=== PATIENT | female | born 1930 | race Caucasian/White ===

== ENCOUNTER 2018-09-07 10:44 | Observation (INO) | payer MEDICARE, BC ==
[2018-09-07] MEDS ORDERED: Sodium Chloride 0.9% 10 ML Syringe FLUSH PRN (10:58)
[2018-09-07] MEDS ORDERED: Sodium Chloride 0.9% 2.5 ML Syringe FLUSH PRN (10:58)
--- NOTE | 2018-09-07 11:08 | EDM.PDOC ---
ED HPI GENERAL MEDICAL PROBLEM - General Chief Complaint: General Stated Complaint: LOW FLUID INTAKE Time Seen by Provider: 09/07/18 11:06 Source of Information: Reports: Patient History Limitations: Reports: No Limitations - History of Present Illness INITIAL COMMENTS - FREE TEXT/NARRATIVE: HISTORY AND PHYSICAL: History of present illness: Patient is an 88-year-old female presents to the ED with complaint of weakness. She states she had vomiting and diarrhea 6 days ago, vomiting has since resolved. She has continued to not have an appetite and hasn't had anything to eat in 3 days. She is drinking plenty of fluids but is having about 2 episodes of nonbloody diarrhea daily. She also reports feeling short of breath but has a history of COPD and states it is not new or worsening. Daughter states she hasn' t been taking her lasix as she has been too weak to get up to use the bathroom to urinate often. She denies cough but daughter states she did have a cough 2 weeks ago. She denies chest pain, fevers, chills, abdominal pain. She is at 88% on RA at arrival, not normally on oxygen at home. Review of systems: As per history of present illness and below otherwise all systems reviewed and negative. Past medical history: As per history of present illness and as reviewed below otherwise noncontributory. Surgical history: As per history of present illness and as reviewed below otherwise noncontributory. Social history: No reported history of drug or alcohol abuse. Family history: As per history of present illness and as reviewed below otherwise noncontributory. Physical exam: General: Patient sitting comfortably in no acute distress and nontoxic appearing HEENT: Atraumatic, normocephalic, pupils reactive, negative for conjunctival pallor or scleral icterus, mucous membranes moist, throat clear, neck supple, nontender, trachea midline. No meningeal signs. Lungs: Clear to auscultation, breath sounds equal bilaterally, chest nontender. Heart: S1S2, regular, negative for clicks, rubs, or overt murmur. Abdomen: Soft, nondistended, nontender. Negative for masses or hepatosplenomegaly. Negative for costovertebral tenderness. No rigidity, rebound , guarding. Pelvis: Stable nontender. Genitourinary: Deferred. Rectal: Deferred. Extremities: Atraumatic, negative for cords or calf pain. Neurovascular unremarkable. 2+ pitting edema bilaterally. Neuro: Awake, alert, oriented. Cranial nerves II through XII unremarkable. Cerebellum unremarkable. Motor and sensory unremarkable throughout. Exam nonfocal. Notes: Diagnostics: CBC, CMP, Troponin, BNP, EKG, CXR Therapeutics: 500mL NS IV Lasix 20mg IV DuoNeb Prescriptions: Impression: Dehydration Plan: Discussed with Dr. Mejia, patient admitted to observation for dehydration Definitive disposition and diagnosis as appropriate pending reevaluation and review of above. - Related Data Allergies Allergy/AdvReac Type Severity Reaction Status Date / Time Digitalis Glycosides Allergy Hives Verified 09/07/18 18:20 Home Meds: Home Meds Diltiazem [Cardizem CD] 240 mg PO DAILY 04/08/14 [History] Metoprolol Tartrate [Lopressor] 100 mg PO BID 04/08/14 [History] Multivits-Min/Iron/FA/Lutein [[employer] Women's Tab] 1 tab PO DAILY 04/08 [History] [place]-3/DHA/Epa/Fish Oil [[place]-3 Fish Oil 1,000 MG Sfgl] 1 tab PO DAILY [History] Potassium Chloride 20 meq PO DAILY 04/08/14 [History] Rivaroxaban [Xarelto] 20 mg PO DAILY 04/08/14 [History] Sertraline [Zoloft] 100 mg PO DAILY 04/08/14 [History] Zolpidem [Ambien] 5 mg PO BEDTIME PRN 04/08/14 [History] Furosemide 80 mg PO DAILY 09/07/18 [History] Losartan [Cozaar] 50 mg PO DAILY 09/07/18 [History] Nitroglycerin 1 tab PO TID PRN MDD 3 09/07/18 [History] ED ROS GENERAL - Review of Systems Review Of Systems: ROS reveals no pertinent complaints other than HPI. ED EXAM, GENERAL - Physical Exam Exam: See Below (see dictation) Course - Vital Signs Last Recorded V/S: Last Vital Signs Temp 98.0 F 09/08/18 08:00 Pulse 77 09/08/18 08:00 Resp 18 09/08/18 08:00 BP 115/58 L 09/08/18 08:00 Pulse Ox 95 09/08/18 08:00 - Orders/Labs/Meds Orders: Active Orders 24 hr Category Date Time Status Admission Status [Patient Status] [ADT] Stat ADT 09/07/18 12:49 Active RT Aerosol Therapy [RC] ASDIRECTED Care 09/07/18 11:19 Active CULTURE URINE [RM] Stat Lab 09/07/18 12:50 Received Sodium Chloride 0.9% [Saline Flush] Med 09/07/18 10:58 Active 10 ml FLUSH ASDIRECTED PRN Sodium Chloride 0.9% [Saline Flush] Med 09/07/18 10:58 Active 2.5 ml FLUSH ASDIRECTED PRN Saline Lock Insert [OM.PC] Stat Oth 09/07/18 10:58 Ordered Medication Orders Acetaminophen (Tylenol) 650 mg PO Q4H PRN PRN Reason: Pain (mild 1-3) Diltiazem HCl (Cardizem Cd) 240 mg PO DAILY [facility] Fish Oil (Fish Oil) 1 gm PO DAILY [facility] Last Admin: 09/08/18 09:01 Dose: 1 gm Ceftriaxone Sodium/Dextrose 1 (gm/ Premix) 50 mls @ 100 mls/hr IV Q24H [facility] Last Admin: 09/07/18 15:38 Dose: 100 mls/hr Metoprolol Tartrate (Lopressor) 100 mg PO BID [facility] Multivitamins/Minerals/Vitamin C (Tab-A-Irene) 1 tab PO DAILY [facility] Last Admin: 09/08/18 09:01 Dose: 1 tab Ondansetron HCl (Zofran) 4 mg IVPUSH Q4H PRN PRN Reason: Nausea Rivaroxaban (Xarelto) 20 mg PO DAILY@1730 [facility] Last Admin: 09/07/18 17:59 Dose: 20 mg Sertraline HCl (Zoloft) 100 mg PO DAILY [facility] Last Admin: 09/08/18 09:01 Dose: 100 mg Sodium Chloride (Saline Flush) 10 ml FLUSH ASDIRECTED PRN PRN Reason: Keep Vein Open Last Admin: 09/07/18 11:41 Dose: 10 ml Sodium Chloride (Saline Flush) 2.5 ml FLUSH ASDIRECTED PRN PRN Reason: Keep Vein Open Last Admin: 09/07/18 11:42 Dose: 2.5 ml Vancomycin HCl (First-Vancomycin 25 Compounding Kit) 125 mg PO QID [facility] Last Admin: 09/08/18 09:22 Dose: 5 ml Labs: Laboratory Tests 09/07/18 09/07/18 09/07/18 Range/Units 11:26 11:26 11:26 WBC 12.39 H (4.0-11.0) K/uL RBC 3.86 L (4.30-5.90) M/uL Hgb 10.3 L (12.0-16.0) g/dL Hct 33.4 L (36.0-46.0) % MCV 86.5 (80.0-98.0) fL MCH 26.7 L (27.0-32.0) pg MCHC 30.8 L (31.0-37.0) g/dL RDW Std Deviation 56.9 (28.0-62.0) fl RDW Coeff of Blaine 18 H (11.0-15.0) % Plt Count 216 (150-400) K/uL MPV 10.00 (7.40-12.00) fL Add Manual Diff YES Neutrophils % (Manual) 90 H (48.0-80.0) % Band Neutrophils % 1 % Lymphocytes % (Manual) 2 L (16.0-40.0) % Monocytes % (Manual) 5 (0.0-15.0) % Eosinophils % (Manual) 1 (0.0-7.0) % Myelocytes % 1 % Nucleated RBC % 0.2 /100WBC Absolute Seg Neuts 11.2 H (1.4-5.7) Band Neutrophils # 0.1 Lymphocytes # (Manual) 0.2 L (0.6-2.4) Monocytes # (Manual) 0.6 (0.0-0.8) Eosinophils # (Manual) 0.1 (0.0-0.7) Absolute Myelocytes 0.1 Nucleated RBCs # 0 K/uL INR 1.24 Sodium 132 L (136-145) mmol/L Potassium 3.8 (3.5-5.1) mmol/L Chloride 100 (98-107) mmol/L Carbon Dioxide 22.4 (21.0-32.0) mmol/L BUN 51 H (7.0-18.0) mg/dL Creatinine 1.3 H (0.6-1.0) mg/dL Est Cr Clr Drug Dosing 24.57 mL/min Estimated GFR (MDRD) 38.8 ml/min Glucose 90 (74-106) mg/dL Calcium 9.2 (8.5-10.1) mg/dL Total Bilirubin 0.6 (0.2-1.0) mg/dL AST 23 (15-37) IU/L ALT 14 (14-63) IU/L Alkaline Phosphatase 87 (46-116) U/L Troponin I < 0.050 (0.000-0.056) ng/mL B-Natriuretic Peptide (<100) PG/ML Total Protein 7.7 (6.4-8.2) g/dL Albumin 2.4 L (3.4-5.0) g/dL Globulin 5.3 H (2.6-4.0) g/dL Albumin/Globulin Ratio 0.5 L (0.9-1.6) Urine Color Urine Appearance Urine pH (5.0-8.0) Ur Specific [place] (1.001-1.035) Urine Protein (NEGATIVE) mg/dL Urine Glucose (UA) (NEGATIVE) mg/dL Urine Ketones (NEGATIVE) mg/dL Urine Occult Blood (NEGATIVE) Urine Nitrite (NEGATIVE) Urine Bilirubin (NEGATIVE) Urine Urobilinogen (<2.0) EU/dL Ur Leukocyte Esterase (NEGATIVE) Urine RBC (0-2/HPF) Urine WBC (0-5/HPF) Ur Epithelial Cells (NONE-FEW) Urine Bacteria (NEGATIVE) Urine Mucus (NONE-MOD) 09/07/18 09/07/18 Range/Units 11:26 12:50 WBC (4.0-11.0) K/uL RBC (4.30-5.90) M/uL Hgb (12.0-16.0) g/dL Hct (36.0-46.0) % MCV (80.0-98.0) fL MCH (27.0-32.0) pg MCHC (31.0-37.0) g/dL RDW Std Deviation (28.0-62.0) fl RDW Coeff of [place] (11.0-15.0) % Plt Count (150-400) K/uL MPV (7.40-12.00) fL Add Manual Diff Neutrophils % (Manual) (48.0-80.0) % Band Neutrophils % % Lymphocytes % (Manual) (16.0-40.0) % Monocytes % (Manual) (0.0-15.0) % Eosinophils % (Manual) (0.0-7.0) % Myelocytes % % Nucleated RBC % /100WBC Absolute Seg Neuts (1.4-5.7) Band Neutrophils # Lymphocytes # (Manual) (0.6-2.4) Monocytes # (Manual) (0.0-0.8) Eosinophils # (Manual) (0.0-0.7) Absolute Myelocytes Nucleated RBCs # K/uL INR Sodium (136-145) mmol/L Potassium (3.5-5.1) mmol/L Chloride (98-107) mmol/L Carbon Dioxide (21.0-32.0) mmol/L BUN (7.0-18.0) mg/dL Creatinine (0.6-1.0) mg/dL Est Cr Clr Drug Dosing mL/min Estimated GFR (MDRD) ml/min Glucose (74-106) mg/dL Calcium (8.5-10.1) mg/dL Total Bilirubin (0.2-1.0) mg/dL AST (15-37) IU/L ALT (14-63) IU/L Alkaline Phosphatase (46-116) U/L Troponin I (0.000-0.056) ng/mL B-Natriuretic Peptide 721 H (<100) PG/ML Total Protein (6.4-8.2) g/dL Albumin (3.4-5.0) g/dL Globulin (2.6-4.0) g/dL Albumin/Globulin Ratio (0.9-1.6) Urine Color YELLOW Urine Appearance SLT CLOUDY Urine pH 5.5 (5.0-8.0) Ur Specific [place] 1.020 (1.001-1.035) Urine Protein NEGATIVE (NEGATIVE) mg/dL Urine Glucose (UA) NEGATIVE (NEGATIVE) mg/dL Urine Ketones NEGATIVE (NEGATIVE) mg/dL Urine Occult Blood NEGATIVE (NEGATIVE) Urine Nitrite NEGATIVE (NEGATIVE) Urine Bilirubin NEGATIVE (NEGATIVE) Urine Urobilinogen 0.2 (<2.0) EU/dL Ur Leukocyte Esterase SMALL H (NEGATIVE) Urine RBC 0-2 (0-2/HPF) Urine WBC 8-10 (0-5/HPF) Ur Epithelial Cells MODERATE (NONE-FEW) Urine Bacteria 1+ H (NEGATIVE) Urine Mucus LIGHT (NONE-MOD) Meds: Medications Generic Name Dose Route Start Last Admin Trade Name Olu PRN Reason Stop Dose Admin Acetaminophen 650 mg 09/07/18 14:07 Tylenol PO Q4H PRN Pain (mild 1-3) Diltiazem HCl 240 mg 09/08/18 11:00 Cardizem Cd PO DAILY [facility] Fish Oil 1 gm 09/08/18 09:00 09/08/18 09:01 Fish Oil PO 1 gm DAILY [facility] Administration Ceftriaxone Sodium/Dextrose 1 50 mls @ 100 mls/hr 09/07/18 15:00 09/07/18 15: 38 gm/ Premix IV 100 mls/hr Q24H [facility] Administration Metoprolol Tartrate 100 mg 09/08/18 11:00 Lopressor PO BID [facility] Multivitamins/Minerals/Vitamin C 1 tab 09/08/18 09:00 09/08/18 09:01 Tab-A-Irene PO 1 tab DAILY [facility] Administration Ondansetron HCl 4 mg 09/07/18 14:07 Zofran IVPUSH Q4H PRN Nausea Rivaroxaban 20 mg 09/07/18 17:30 09/07/18 17:59 Xarelto PO 20 mg DAILY@1730 [facility] Administration Sertraline HCl 100 mg 09/08/18 09:00 09/08/18 09:01 Zoloft PO 100 mg DAILY [facility] Administration Sodium Chloride 10 ml 09/07/18 10:58 09/07/18 11:41 Saline Flush FLUSH 10 ml ASDIRECTED PRN Administration Keep Vein Open Sodium Chloride 2.5 ml 09/07/18 10:58 09/07/18 11:42 Saline Flush FLUSH 2.5 ml ASDIRECTED PRN Administration Keep Vein Open Vancomycin HCl 125 mg 09/08/18 09:00 09/08/18 09:22 First-Vancomycin 25 Compounding Kit PO 5 ml QID [facility] Administration Discontinued Medications Generic Name Dose Route Start Last Admin Trade Name Olu PRN Reason Stop Dose Admin Albuterol/Ipratropium 3 ml 09/07/18 11:18 09/07/18 11:47 Duoneb 3.0-0.5 Mg/3 Ml NEB 09/07/18 11:19 3 ml ONETIME ONE Administration Furosemide 20 mg 09/07/18 11:18 09/07/18 11:42 Lasix IVPUSH 09/07/18 11:19 20 mg NOW ONE Administration Sodium Chloride 500 mls @ 999 mls/hr 09/07/18 11:15 09/07/18 11:39 Normal Saline IV 999 mls/hr STAT [facility] Administration Sodium Chloride 1,000 mls @ 50 mls/hr 09/07/18 12:50 09/07/18 14:06 Normal Saline IV 09/08/18 08:49 50 mls/hr STAT ONE Administration Sodium Chloride 1,000 mls @ 50 mls/hr 09/07/18 14:15 09/07/18 17:55 Normal Saline IV 50 mls/hr ASDIRECTED [facility] Administration Vancomycin HCl 250 mg 09/07/18 20:00 09/08/18 03:41 Vancomycin PO 250 mg Q6H [facility] Administration Departure - Departure Time of Disposition: 11:00 Disposition: Refer to Observation Condition: Good Clinical Impression: Dehydration - Discharge Information - My Orders Last 24 Hours: My Active Orders 09/07/18 10:58 Sodium Chloride 0.9% [Saline Flush] 10 ml FLUSH ASDIRECTED PRN Sodium Chloride 0.9% [Saline Flush] 2.5 ml FLUSH ASDIRECTED PRN Saline Lock Insert [OM.PC] Stat 09/07/18 11:19 RT Aerosol Therapy [RC] ASDIRECTED 09/07/18 12:49 Admission Status [Patient Status] [ADT] Stat 09/07/18 12:50 CULTURE URINE [RM] Stat - Assessment/Plan Last 24 Hours: My Active Orders 09/07/18 10:58 Sodium Chloride 0.9% [Saline Flush] 10 ml FLUSH ASDIRECTED PRN Sodium Chloride 0.9% [Saline Flush] 2.5 ml FLUSH ASDIRECTED PRN Saline Lock Insert [OM.PC] Stat 09/07/18 11:19 RT Aerosol Therapy [RC] ASDIRECTED 09/07/18 12:49 Admission Status [Patient Status] [ADT] Stat 09/07/18 12:50 CULTURE URINE [RM] Stat
[2018-09-07] MEDS ORDERED: Sodium Chloride 0.9% 500 ML IV SCH (11:15)
[2018-09-07] MEDS ORDERED: Furosemide 40 MG/4 ML VIAL IVPUSH ONE (11:18)
[2018-09-07] MEDS ORDERED: Albuterol/Ipratropium 3.0-0.5 MG/3 ML Neb Soln NEB ONE (11:18)
--- NOTE | 2018-09-07 11:59 | CR ---
EXAMINATION: Portable chest radiograph. HISTORY: Shortness of breath. Comparison: 01/11/2018. FINDINGS: The trachea is midline. The heart is prominent in size for technique. The cardiomediastinal silhouette is stable. Chronic interstitial prominence with volume loss within the right lung base. Stable patchy infiltrate also noted bilaterally. Osseous structures appear unremarkable. IMPRESSION: 1. Stable interstitial prominence and patchy infiltrate likely representing a degree of scarring. Increasing pulmonary edema is not excluded. 2. Cardiomegaly.
[2018-09-07 12:07] LABS: CHLORIDE,CL 100 mmol/L (98-107); SODIUM,NA 132 mmol/L (136-145)
[2018-09-07] MEDS ORDERED: Sodium Chloride 0.9% 1,000 ML IV ONE (12:50)
[2018-09-07] MEDS ORDERED: Acetaminophen 325 MG Tab PO PRN (14:07)
[2018-09-07] MEDS ORDERED: Ondansetron 4 MG/2 ML SDV IVPUSH PRN (14:07)
--- NOTE | 2018-09-07 14:10 | PCM.HP ---
<Zoie Brooks M - Last Filed: 09/07/18 16:35> H&P History of Present Illness - General Date of Service: 09/07/18 Admit Problem/Dx: Admission Diagnosis/Problem Admission Diagnosis/Problem Dehydration Source of Information: Patient, Family History Limitations: Reports: No Limitations - History of Present Illness Initial Comments - Free Text/Narative: This 88 year old female with pmh of afib on chronic anticoagulation, pacemaker, pulmonary hypertension, and severe tricuspid regurgitation presented to the ED today due to low blood pressure, diarrhea and poor oral intake. She reports for about 1 week she has not felt well. With intermittent nausea. No vomiting. Very poor appetite and hasn't eaten much since Wednesday. She reports feeling thirsty. She has NOT taken any of her medications for the past two days as she hasn't felt well, she hasn't take Lasix for 4 days due to diarrhea and low intake. She denies fevers or chills. No chest pain. SOB is slightly increased from baseline. She reports diarrhea 3-4 times daily, this is watery in nature. Mild abdominal pain with palpation. NO black or bloody BMs. No focal neurologic deficits. In the ED mild leukocytosis noted at 12,390, Hgb 1.3, Na 132, BUN 51, Cr 1.3 which is near baseline. BNP 721, which is lower than baseline. CXR revealed pulmonary edema and scarring to R base and cardiomegaly. EKG SR. BP 100/50s. HR 80s. SHe was given bolus as well as Lasxi 20 mg IV. UA revealed +1 bacteria, pyuria, and leukocyte esterase. She will be admitted for dehydration, UTI and diarrhea. - Related Data Allergies/Adverse Reactions: Allergies Allergy/AdvReac Type Severity Reaction Status Date / Time Digitalis Glycosides Allergy Hives Verified 09/07/18 11:04 Home Medications: Home Meds Diltiazem [Cardizem CD] 240 mg PO DAILY 04/08/14 [History] Metoprolol Tartrate [Lopressor] 100 mg PO BID 04/08/14 [History] Multivits-Min/Iron/FA/Lutein [[employer] Women's Tab] 1 tab PO DAILY 04/08 [History] [place]-3/DHA/Epa/Fish Oil [[place]-3 Fish Oil 1,000 MG Sfgl] 1 tab PO DAILY [History] Potassium Chloride 20 meq PO DAILY 04/08/14 [History] Rivaroxaban [Xarelto] 20 mg PO DAILY 04/08/14 [History] Sertraline [Zoloft] 100 mg PO DAILY 04/08/14 [History] Zolpidem [Ambien] 5 mg PO BEDTIME PRN 04/08/14 [History] Furosemide 80 mg PO DAILY 09/07/18 [History] Losartan [Cozaar] 50 mg PO DAILY 09/07/18 [History] Nitroglycerin 1 tab PO TID PRN MDD 3 09/07/18 [History] Past Medical History Cardiovascular History: Reports: Afib, CAD, Heart Failure, High Cholesterol, Hypertension, Pacemaker, Pulmonary Hypertension, Other (See Below) Other Cardiovascular History: Severe tricuspid regurgitation Respiratory History: Reports: COPD, SOB Gastrointestinal History: Reports: None. Denies: GERD Genitourinary History: Reports: Chronic Renal Insuffiency STUDIO ASSISTANT History: Reports: Musculoskeletal History: Reports: Back Pain, Chronic Psychiatric History: Reports: Depression Endocrine/Metabolic History: Reports: Obesity/BMI 30+. Denies: Diabetes, Type II, Hypothyroidism Hematologic History: Reports: Anticoagulation Therapy Oncologic (Cancer) History: Reports: Colon - Past Surgical History Cardiovascular Surgical History: Reports: Cardiac Ablation, Pacer GI Surgical History: Reports: Hernia, Abdominal Social & Family History - Tobacco Use Smoking Status *Q: Former Smoker Used Tobacco, but Quit: Yes Month/Year Tobacco Last Used: 18-20 years ago - Alcohol Use Alcohol Use History: No - Recreational Drug Use Recreational Drug Use: No - Living Situation & Occupation Occupation: Retired H&P Review of Systems - Review of Systems: Review Of Systems: See Below General: Reports: Chills, Malaise, Weakness. Denies: Fever HEENT: Reports: No Symptoms. Denies: Headaches, Post Nasal Drip, Sore Throat Pulmonary: Reports: Shortness of Breath. Denies: Cough Cardiovascular: Denies: Chest Pain, Palpitations, Lightheadedness Gastrointestinal: Reports: Abdominal Pain, Diarrhea, Decreased Appetite, Nausea. Denies: Black Stool, Bloody Stool, Distension, Vomiting Genitourinary: Reports: No Symptoms. Denies: Dysuria, Frequency, Burning, Flank Pain Musculoskeletal: Reports: No Symptoms Skin: Reports: No Symptoms Neurological: Reports: No Symptoms Hematologic/Lymphatic: Reports: No Symptoms Immunologic: Reports: No Symptoms Exam - Exam Exam: See Below - Vital Signs Vital Signs: Last Vital Signs Temp 97.8 F 09/07/18 10:59 Pulse 76 09/07/18 14:06 Resp 18 09/07/18 14:06 BP 104/58 L 09/07/18 14:06 Pulse Ox 94 L 09/07/18 14:06 Weight: 95.2 kg - Exam Quality Assessment: Supplemental Oxygen General: Alert, Oriented HEENT: Conjunctiva Clear, Pupils Equal. No: Mucosa Moist & [place] (dry) Neck: Supple, Trachea Midline. 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.) Cardiovascular: Regular Rate, Regular Rhythm GI/Abdominal Exam: Normal Bowel Sounds, Soft, Tender (diffuse) Back Exam: Normal Inspection, Full Range of Motion Extremities: Normal Inspection, Normal Range of Motion, Non-Tender, Pedal Edema (+2 pitting edema BLE) Neuro Extensive - Mental Status: Alert, Oriented x3 Neuro Extensive - Motor, Sensory, Reflexes: CN II-XII Intact Psychiatric: Alert, Normal Affect, Normal Mood - Patient Data Lab Results Last 24 hrs: Laboratory Results - last 24 hr 09/07/18 09/07/18 09/07/18 Range/Units 11:26 11:26 11:26 WBC 12.39 H (4.0-11.0) K/uL RBC 3.86 L (4.30-5.90) M/uL Hgb 10.3 L (12.0-16.0) g/dL Hct 33.4 L (36.0-46.0) % MCV 86.5 (80.0-98.0) fL MCH 26.7 L (27.0-32.0) pg MCHC 30.8 L (31.0-37.0) g/dL RDW Std Deviation 56.9 (28.0-62.0) fl RDW Coeff of [place] 18 H (11.0-15.0) % Plt Count 216 (150-400) K/uL MPV 10.00 (7.40-12.00) fL Add Manual Diff YES Neutrophils % (Manual) 90 H (48.0-80.0) % Band Neutrophils % 1 % Lymphocytes % (Manual) 2 L (16.0-40.0) % Monocytes % (Manual) 5 (0.0-15.0) % Eosinophils % (Manual) 1 (0.0-7.0) % Myelocytes % 1 % Nucleated RBC % 0.2 /100WBC Absolute Seg Neuts 11.2 H (1.4-5.7) Band Neutrophils # 0.1 Lymphocytes # (Manual) 0.2 L (0.6-2.4) Monocytes # (Manual) 0.6 (0.0-0.8) Eosinophils # (Manual) 0.1 (0.0-0.7) Absolute Myelocytes 0.1 Nucleated RBCs # 0 K/uL INR 1.24 Sodium 132 L (136-145) mmol/L Potassium 3.8 (3.5-5.1) mmol/L Chloride 100 (98-107) mmol/L Carbon Dioxide 22.4 (21.0-32.0) mmol/L BUN 51 H (7.0-18.0) mg/dL Creatinine 1.3 H (0.6-1.0) mg/dL Est Cr Clr Drug Dosing 24.57 mL/min Estimated GFR (MDRD) 38.8 ml/min Glucose 90 (74-106) mg/dL Calcium 9.2 (8.5-10.1) mg/dL Total Bilirubin 0.6 (0.2-1.0) mg/dL AST 23 (15-37) IU/L ALT 14 (14-63) IU/L Alkaline Phosphatase 87 (46-116) U/L Troponin I < 0.050 (0.000-0.056) ng/mL B-Natriuretic Peptide (<100) PG/ML Total Protein 7.7 (6.4-8.2) g/dL Albumin 2.4 L (3.4-5.0) g/dL Globulin 5.3 H (2.6-4.0) g/dL Albumin/Globulin Ratio 0.5 L (0.9-1.6) Urine Color Urine Appearance Urine pH (5.0-8.0) Ur Specific [place] (1.001-1.035) Urine Protein (NEGATIVE) mg/dL Urine Glucose (UA) (NEGATIVE) mg/dL Urine Ketones (NEGATIVE) mg/dL Urine Occult Blood (NEGATIVE) Urine Nitrite (NEGATIVE) Urine Bilirubin (NEGATIVE) Urine Urobilinogen (<2.0) EU/dL Ur Leukocyte Esterase (NEGATIVE) Urine RBC (0-2/HPF) Urine WBC (0-5/HPF) Ur Epithelial Cells (NONE-FEW) Urine Bacteria (NEGATIVE) Urine Mucus (NONE-MOD) 09/07/18 09/07/18 Range/Units 11:26 12:50 WBC (4.0-11.0) K/uL RBC (4.30-5.90) M/uL Hgb (12.0-16.0) g/dL Hct (36.0-46.0) % MCV (80.0-98.0) fL MCH (27.0-32.0) pg MCHC (31.0-37.0) g/dL RDW Std Deviation (28.0-62.0) fl RDW Coeff of [place] (11.0-15.0) % Plt Count (150-400) K/uL MPV (7.40-12.00) fL Add Manual Diff Neutrophils % (Manual) (48.0-80.0) % Band Neutrophils % % Lymphocytes % (Manual) (16.0-40.0) % Monocytes % (Manual) (0.0-15.0) % Eosinophils % (Manual) (0.0-7.0) % Myelocytes % % Nucleated RBC % /100WBC Absolute Seg Neuts (1.4-5.7) Band Neutrophils # Lymphocytes # (Manual) (0.6-2.4) Monocytes # (Manual) (0.0-0.8) Eosinophils # (Manual) (0.0-0.7) Absolute Myelocytes Nucleated RBCs # K/uL INR Sodium (136-145) mmol/L Potassium (3.5-5.1) mmol/L Chloride (98-107) mmol/L Carbon Dioxide (21.0-32.0) mmol/L BUN (7.0-18.0) mg/dL Creatinine (0.6-1.0) mg/dL Est Cr Clr Drug Dosing mL/min Estimated GFR (MDRD) ml/min Glucose (74-106) mg/dL Calcium (8.5-10.1) mg/dL Total Bilirubin (0.2-1.0) mg/dL AST (15-37) IU/L ALT (14-63) IU/L Alkaline Phosphatase (46-116) U/L Troponin I (0.000-0.056) ng/mL B-Natriuretic Peptide 721 H (<100) PG/ML Total Protein (6.4-8.2) g/dL Albumin (3.4-5.0) g/dL Globulin (2.6-4.0) g/dL Albumin/Globulin Ratio (0.9-1.6) Urine Color YELLOW Urine Appearance SLT CLOUDY Urine pH 5.5 (5.0-8.0) Ur Specific [place] 1.020 (1.001-1.035) Urine Protein NEGATIVE (NEGATIVE) mg/dL Urine Glucose (UA) NEGATIVE (NEGATIVE) mg/dL Urine Ketones NEGATIVE (NEGATIVE) mg/dL Urine Occult Blood NEGATIVE (NEGATIVE) Urine Nitrite NEGATIVE (NEGATIVE) Urine Bilirubin NEGATIVE (NEGATIVE) Urine Urobilinogen 0.2 (<2.0) EU/dL Ur Leukocyte Esterase SMALL H (NEGATIVE) Urine RBC 0-2 (0-2/HPF) Urine WBC 8-10 (0-5/HPF) Ur Epithelial Cells MODERATE (NONE-FEW) Urine Bacteria 1+ H (NEGATIVE) Urine Mucus LIGHT (NONE-MOD) Result Diagrams: 09/07/18 11:26 09/07/18 11:26 - Problem List (1) Dehydration SNOMED Code(s): 52633028 ICD Code: E86.0 - DEHYDRATION Status: Acute Current Visit: Yes (2) Diarrhea SNOMED Code(s): 99822191 ICD Code: R19.7 - DIARRHEA, UNSPECIFIED Status: Acute Current Visit: Yes (3) UTI (urinary tract infection) SNOMED Code(s): 84729726 ICD Code: N39.0 - URINARY TRACT INFECTION, SITE NOT SPECIFIED Status: Acute Current Visit: Yes (4) HTN (hypertension) SNOMED Code(s): 88361929 ICD Code: I10 - ESSENTIAL (PRIMARY) HYPERTENSION Status: Chronic Current Visit: Yes Qualifiers: Hypertension type: essential hypertension Qualified Code(s): I10 - Essential (primary) hypertension (5) Afib SNOMED Code(s): 42332408 ICD Code: I48.91 - UNSPECIFIED ATRIAL FIBRILLATION Status: Chronic Current Visit: Yes Qualifiers: Atrial fibrillation type: chronic Qualified Code(s): I48.2 - Chronic atrial fibrillation (6) Anticoagulation adequate SNOMED Code(s): 175518463, 551323051 ICD Code: Z79.01 - ALF (CURRENT) USE OF ANTICOAGULANTS Status: Chronic Current Visit: Yes (7) Pacemaker SNOMED Code(s): 803650261 ICD Code: Z95.0 - PRESENCE OF CARDIAC PACEMAKER Status: Chronic Current Visit: Yes (8) Pulmonary hypertension SNOMED Code(s): 39045668 ICD Code: I27.20 - PULMONARY HYPERTENSION, UNSPECIFIED Status: Acute Current Visit: Yes (9) Tricuspid regurgitation SNOMED Code(s): 587816867 ICD Code: I07.1 - RHEUMATIC TRICUSPID INSUFFICIENCY Status: Chronic Current Visit: Yes Problem List Initiated/Reviewed/Updated: Yes Orders Last 24hrs: Active Orders 24 hr Category Date Time Status Admission Status [Patient Status] [ADT] Stat ADT 09/07/18 12:49 Active Antiembolic Devices [RC] PER UNIT ROUTINE Care 09/07/18 14:07 Ordered EKG Documentation Completion [RC] STAT Care 09/07/18 11:02 Active Height and Weight [RC] DAILY Care 09/07/18 14:07 Ordered Intake and Output Strict [RC] ASDIRECTED Care 09/07/18 14:09 Ordered Oxygen Therapy [RC] PRN Care 09/07/18 14:07 Ordered RT Aerosol Therapy [RC] ASDIRECTED Care 09/07/18 11:19 Active Up With Assistance [RC] ASDIRECTED Care 09/07/18 14:07 Ordered VTE/DVT Education [RC] PER UNIT ROUTINE Care 09/07/18 14:07 Ordered Vital Signs [RC] Q4H Care 09/07/18 14:07 Ordered 2 Gram Sodium Diet [DIET] Diet 09/07/18 Lunch Ordered BASIC METABOLIC PANEL,BMP [CHEM] AM Lab 09/08/18 05:11 Ordered CBC WITH AUTO DIFF [HEME] AM Lab 09/08/18 05:11 Ordered CDIFF TOX A+B [OP] Routine Lab 09/07/18 14:08 Ordered CULTURE STOOL + CAMPY+SHIGATOX [RM] Routine Lab 09/07/18 14:08 Ordered CULTURE URINE [RM] Stat Lab 09/07/18 12:50 Received Acetaminophen [Tylenol] Med 09/07/18 14:07 Ordered 650 mg PO Q4H PRN Ondansetron [Zofran] Med 09/07/18 14:07 Ordered 4 mg IVPUSH Q4H PRN Sodium Chloride 0.9% [Normal Saline] 1,000 ml Med 09/07/18 12:50 Active IV STAT Sodium Chloride 0.9% [Normal Saline] 500 ml Med 09/07/18 11:15 Active IV STAT Sodium Chloride 0.9% [Saline Flush] Med 09/07/18 10:58 Active 10 ml FLUSH ASDIRECTED PRN Sodium Chloride 0.9% [Saline Flush] Med 09/07/18 10:58 Active 2.5 ml FLUSH ASDIRECTED PRN Antiembolic Hose [OM.PC] Per Unit Routine Ot 09/07/18 14:07 Ordered Isolation [COMM] Stat Ot 09/07/18 14:09 Ordered Saline Lock Insert [OM.PC] Stat Ot 09/07/18 10:58 Ordered Resuscitation Status Routine Resus Stat 09/07/18 14:07 Ordered Medication Orders Acetaminophen (Tylenol) 650 mg PO Q4H PRN PRN Reason: Pain (mild 1-3) Sodium Chloride (Normal Saline) 500 mls @ 999 mls/hr IV STAT FAYE Last Admin: 09/07/18 11:39 Dose: 999 mls/hr Sodium Chloride (Normal Saline) 1,000 mls @ 50 mls/hr IV STAT ONE Stop: 09/08/18 08:49 Last Admin: 09/07/18 14:06 Dose: 50 mls/hr Ondansetron HCl (Zofran) 4 mg IVPUSH Q4H PRN PRN Reason: Nausea Sodium Chloride (Saline Flush) 10 ml FLUSH ASDIRECTED PRN PRN Reason: Keep Vein Open Last Admin: 09/07/18 11:41 Dose: 10 ml Sodium Chloride (Saline Flush) 2.5 ml FLUSH ASDIRECTED PRN PRN Reason: Keep Vein Open Last Admin: 09/07/18 11:42 Dose: 2.5 ml Assessment/Plan Comment:: This 88 year old female admitted with dehydration, diarrhea and UTI 1. Dehydration: Hypotension noted without taking home BP medications. Will hold antihypertensives. Monitor. NS 50 ml/hr, gentle IVF due to hx CHF and pulmonary hypertension 2. Diarrhea: Stool studies pending. 3. UTI: UC pending. Will treat with Rocephin. 4. HTN: hypotensive, as stated above hold medications 5. Afib: Continue Xarelto. Monitor on telemetry. 6. CHF: Stable. Monitor fluid status closely. Daily weights Strict I/O. Weight at 95 kg, which is near dry weight per Dr Mancia note. VTE prophylaxis: Continue Xarelto <Dakota Salazar - Last Filed: 09/07/18 18:19> H&P History of Present Illness - General Admit Problem/Dx: Admission Diagnosis/Problem Admission Diagnosis/Problem Dehydration I have examined the patient independently of Zoie Brooks CNP. I have discussed the case with her. I have reviewed and agree with the examination and plan as outlined by her. Please see orders. Exam - Vital Signs Vital Signs: Last Vital Signs Temp 36.4 C 09/07/18 14:32 Pulse 77 09/07/18 14:32 Resp 16 09/07/18 14:32 BP 115/56 L 09/07/18 14:32 Pulse Ox 90 L 09/07/18 14:32 - Patient Data Lab Results Last 24 hrs: Laboratory Results - last 24 hr 09/07/18 09/07/18 09/07/18 Range/Units 11:26 11:26 11:26 WBC 12.39 H (4.0-11.0) K/uL RBC 3.86 L (4.30-5.90) M/uL Hgb 10.3 L (12.0-16.0) g/dL Hct 33.4 L (36.0-46.0) % MCV 86.5 (80.0-98.0) fL MCH 26.7 L (27.0-32.0) pg MCHC 30.8 L (31.0-37.0) g/dL RDW Std Deviation 56.9 (28.0-62.0) fl RDW Coeff of [place] 18 H (11.0-15.0) % Plt Count 216 (150-400) K/uL MPV 10.00 (7.40-12.00) fL Add Manual Diff YES Neutrophils % (Manual) 90 H (48.0-80.0) % Band Neutrophils % 1 % Lymphocytes % (Manual) 2 L (16.0-40.0) % Monocytes % (Manual) 5 (0.0-15.0) % Eosinophils % (Manual) 1 (0.0-7.0) % Myelocytes % 1 % Nucleated RBC % 0.2 /100WBC Absolute Seg Neuts 11.2 H (1.4-5.7) Band Neutrophils # 0.1 Lymphocytes # (Manual) 0.2 L (0.6-2.4) Monocytes # (Manual) 0.6 (0.0-0.8) Eosinophils # (Manual) 0.1 (0.0-0.7) Absolute Myelocytes 0.1 Nucleated RBCs # 0 K/uL INR 1.24 Sodium 132 L (136-145) mmol/L Potassium 3.8 (3.5-5.1) mmol/L Chloride 100 (98-107) mmol/L Carbon Dioxide 22.4 (21.0-32.0) mmol/L BUN 51 H (7.0-18.0) mg/dL Creatinine 1.3 H (0.6-1.0) mg/dL Est Cr Clr Drug Dosing 24.57 mL/min Estimated GFR (MDRD) 38.8 ml/min Glucose 90 (74-106) mg/dL Calcium 9.2 (8.5-10.1) mg/dL Total Bilirubin 0.6 (0.2-1.0) mg/dL AST 23 (15-37) IU/L ALT 14 (14-63) IU/L Alkaline Phosphatase 87 (46-116) U/L Troponin I < 0.050 (0.000-0.056) ng/mL B-Natriuretic Peptide (<100) PG/ML Total Protein 7.7 (6.4-8.2) g/dL Albumin 2.4 L (3.4-5.0) g/dL Globulin 5.3 H (2.6-4.0) g/dL Albumin/Globulin Ratio 0.5 L (0.9-1.6) Urine Color Urine Appearance Urine pH (5.0-8.0) Ur Specific [place] (1.001-1.035) Urine Protein (NEGATIVE) mg/dL Urine Glucose (UA) (NEGATIVE) mg/dL Urine Ketones (NEGATIVE) mg/dL Urine Occult Blood (NEGATIVE) Urine Nitrite (NEGATIVE) Urine Bilirubin (NEGATIVE) Urine Urobilinogen (<2.0) EU/dL Ur Leukocyte Esterase (NEGATIVE) Urine RBC (0-2/HPF) Urine WBC (0-5/HPF) Ur Epithelial Cells (NONE-FEW) Urine Bacteria (NEGATIVE) Urine Mucus (NONE-MOD) 09/07/18 09/07/18 Range/Units 11:26 12:50 WBC (4.0-11.0) K/uL RBC (4.30-5.90) M/uL Hgb (12.0-16.0) g/dL Hct (36.0-46.0) % MCV (80.0-98.0) fL MCH (27.0-32.0) pg MCHC (31.0-37.0) g/dL RDW Std Deviation (28.0-62.0) fl RDW Coeff of [place] (11.0-15.0) % Plt Count (150-400) K/uL MPV (7.40-12.00) fL Add Manual Diff Neutrophils % (Manual) (48.0-80.0) % Band Neutrophils % % Lymphocytes % (Manual) (16.0-40.0) % Monocytes % (Manual) (0.0-15.0) % Eosinophils % (Manual) (0.0-7.0) % Myelocytes % % Nucleated RBC % /100WBC Absolute Seg Neuts (1.4-5.7) Band Neutrophils # Lymphocytes # (Manual) (0.6-2.4) Monocytes # (Manual) (0.0-0.8) Eosinophils # (Manual) (0.0-0.7) Absolute Myelocytes Nucleated RBCs # K/uL INR Sodium (136-145) mmol/L Potassium (3.5-5.1) mmol/L Chloride (98-107) mmol/L Carbon Dioxide (21.0-32.0) mmol/L BUN (7.0-18.0) mg/dL Creatinine (0.6-1.0) mg/dL Est Cr Clr Drug Dosing mL/min Estimated GFR (MDRD) ml/min Glucose (74-106) mg/dL Calcium (8.5-10.1) mg/dL Total Bilirubin (0.2-1.0) mg/dL AST (15-37) IU/L ALT (14-63) IU/L Alkaline Phosphatase (46-116) U/L Troponin I (0.000-0.056) ng/mL B-Natriuretic Peptide 721 H (<100) PG/ML Total Protein (6.4-8.2) g/dL Albumin (3.4-5.0) g/dL Globulin (2.6-4.0) g/dL Albumin/Globulin Ratio (0.9-1.6) Urine Color YELLOW Urine Appearance SLT CLOUDY Urine pH 5.5 (5.0-8.0) Ur Specific [place] 1.020 (1.001-1.035) Urine Protein NEGATIVE (NEGATIVE) mg/dL Urine Glucose (UA) NEGATIVE (NEGATIVE) mg/dL Urine Ketones NEGATIVE (NEGATIVE) mg/dL Urine Occult Blood NEGATIVE (NEGATIVE) Urine Nitrite NEGATIVE (NEGATIVE) Urine Bilirubin NEGATIVE (NEGATIVE) Urine Urobilinogen 0.2 (<2.0) EU/dL Ur Leukocyte Esterase SMALL H (NEGATIVE) Urine RBC 0-2 (0-2/HPF) Urine WBC 8-10 (0-5/HPF) Ur Epithelial Cells MODERATE (NONE-FEW) Urine Bacteria 1+ H (NEGATIVE) Urine Mucus LIGHT (NONE-MOD) Result Diagrams: 09/07/18 11:26 09/07/18 11:26 Orders Last 24hrs: Active Orders 24 hr Category Date Time Status Admission Status [Patient Status] [ADT] Stat ADT 09/07/18 12:49 Active Antiembolic Devices [RC] PER UNIT ROUTINE Care 09/07/18 14:07 Active EKG Documentation Completion [RC] STAT Care 09/07/18 11:02 Active Height and Weight [RC] DAILY Care 09/07/18 14:07 Active Intake and Output Strict [RC] ASDIRECTED Care 09/07/18 14:09 Active Oxygen Therapy [RC] PRN Care 09/07/18 14:07 Active RT Aerosol Therapy [RC] ASDIRECTED Care 09/07/18 11:19 Active Telemetry Monitoring [Cardiac Monitoring] [RC] . Care 09/07/18 14:12 Active DIRECTED Up With Assistance [RC] ASDIRECTED Care 09/07/18 14:07 Active VTE/DVT Education [RC] PER UNIT ROUTINE Care 09/07/18 14:07 Active Vital Signs [RC] Q4H Care 09/07/18 14:07 Active 2 Gram Sodium Diet [DIET] Diet 09/07/18 Lunch Active BASIC METABOLIC PANEL,BMP [CHEM] AM Lab 09/08/18 05:11 Ordered CBC WITH AUTO DIFF [HEME] AM Lab 09/08/18 05:11 Ordered CDIFF TOX A+B [OP] Routine Lab 09/07/18 17:10 Received CULTURE STOOL + CAMPY+SHIGATOX [RM] Routine Lab 09/07/18 17:10 Received CULTURE URINE [RM] Stat Lab 09/07/18 12:50 Received Acetaminophen [Tylenol] Med 09/07/18 14:07 Active 650 mg PO Q4H PRN Fish Oil/[place]-3 Fatty Acids [Fish Oil] Med 09/08/18 09:00 Active 1 gm PO DAILY Multivitamins [Tab-A-Irene] Med 09/08/18 09:00 Active 1 tab PO DAILY Ondansetron [Zofran] Med 09/07/18 14:07 Active 4 mg IVPUSH Q4H PRN Rivaroxaban [Xarelto] Med 09/07/18 17:30 Active 20 mg PO DAILY@1730 Sertraline [Zoloft] Med 09/08/18 09:00 Active 100 mg PO DAILY Sodium Chloride 0.9% [Normal Saline] 1,000 ml Med 09/07/18 14:15 Active IV ASDIRECTED Sodium Chloride 0.9% [Saline Flush] Med 09/07/18 10:58 Active 10 ml FLUSH ASDIRECTED PRN Sodium Chloride 0.9% [Saline Flush] Med 09/07/18 10:58 Active 2.5 ml FLUSH ASDIRECTED PRN cefTRIAXone [Rocephin in Dextrose,Iso-Osm 1 GM/50 ML] 1 Med 09/07/18 15:00 Active gm Premix Bag 1 bag IV Q24H Antiembolic Hose [OM.PC] Per Unit Routine Oth 09/07/18 14:07 Ordered Isolation [COMM] Stat Oth 09/07/18 14:09 Ordered Saline Lock Insert [OM.PC] Stat Oth 09/07/18 10:58 Ordered Resuscitation Status Routine Resus Stat 09/07/18 14:07 Ordered Medication Orders Acetaminophen (Tylenol) 650 mg PO Q4H PRN PRN Reason: Pain (mild 1-3) Fish Oil (Fish Oil) 1 gm PO DAILY FAYE Sodium Chloride (Normal Saline) 1,000 mls @ 50 mls/hr IV ASDIRECTED [facility] Last Admin: 09/07/18 17:55 Dose: 50 mls/hr Ceftriaxone Sodium/Dextrose 1 (gm/ Premix) 50 mls @ 100 mls/hr IV Q24H [facility] Last Admin: 09/07/18 15:38 Dose: 100 mls/hr Multivitamins/Minerals/Vitamin C (Tab-A-Irene) 1 tab PO DAILY [facility] Ondansetron HCl (Zofran) 4 mg IVPUSH Q4H PRN PRN Reason: Nausea Rivaroxaban (Xarelto) 20 mg PO DAILY@1730 [facility] Last Admin: 09/07/18 17:59 Dose: 20 mg Sertraline HCl (Zoloft) 100 mg PO DAILY [facility] Sodium Chloride (Saline Flush) 10 ml FLUSH ASDIRECTED PRN PRN Reason: Keep Vein Open Last Admin: 09/07/18 11:41 Dose: 10 ml Sodium Chloride (Saline Flush) 2.5 ml FLUSH ASDIRECTED PRN PRN Reason: Keep Vein Open Last Admin: 09/07/18 11:42 Dose: 2.5 ml
[2018-09-07] MEDS ORDERED: Sodium Chloride 0.9% 1,000 ML IV SCH (14:15)
[2018-09-07] MEDS: cefTRIAXone 1 GM in Premix Bag 1 BAG IV SCH (15:38)
[2018-09-07] MEDS: Rivaroxaban 10 MG Tab PO SCH (17:59)
[2018-09-07] MEDS: Vancomycin 125 MG Cap PO SCH (22:05)
[2018-09-08] MEDS: Vancomycin 125 MG Cap PO SCH (03:41)
[2018-09-08] MEDS: Multivitamin Tab PO SCH (09:01)
[2018-09-08] MEDS: Sertraline 100 MG Tab PO SCH (09:01)
[2018-09-08] MEDS: Fish Oil/Omega-3 Fatty Acids 1 Gm Cap PO SCH (09:01)
--- NOTE | 2018-09-08 09:19 | PCM.PN ---
<Zoie Brooks M - Last Filed: 09/08/18 10:47> - General Info Date of Service: 09/08/18 Admission Dx/Problem (Free Text): Admission Diagnosis/Problem Admission Diagnosis/Problem Dehydration Subjective Update: Sitting up in the chair. Feeling much improved from yesterday. She denies SOB or chest pain. Edema to lower legs has improved. Diarrhea once last night and non since. She ate well for supper and is hungry from breakfast. Functional Status: Reports: Pain Controlled, Tolerating Diet, Ambulating, Urinating - Review of Systems General: Reports: No Symptoms HEENT: Reports: No Symptoms. Denies: Headaches, Sore Throat, Visual Changes Pulmonary: Reports: No Symptoms. Denies: Shortness of Breath Cardiovascular: Reports: No Symptoms. Denies: Chest Pain Gastrointestinal: Reports: No Symptoms. Denies: Abdominal Pain, Nausea, Vomiting Genitourinary: Reports: No Symptoms Musculoskeletal: Reports: No Symptoms Skin: Reports: No Symptoms Neurological: Reports: No Symptoms Psychiatric: Reports: No Symptoms - Patient Data Vitals - Most Recent: Last Vital Signs Temp 98.4 F 09/08/18 03:34 Pulse 75 09/08/18 03:34 Resp 18 09/08/18 03:34 BP 127/60 09/08/18 03:34 Pulse Ox 91 L 09/08/18 03:34 Weight - Most Recent: 95.963 kg I&O - Last 24 Hours: Intake & Output 09/07/18 09/08/18 09/08/18 22:59 06:59 14:59 Intake Total 120 550 Output Total 100 350 Balance 20 200 Lab Results Last 24 Hours: Laboratory Results - last 24 hr 09/07/18 09/07/18 09/07/18 Range/Units 11:26 11:26 11:26 WBC 12.39 H (4.0-11.0) K/uL RBC 3.86 L (4.30-5.90) M/uL Hgb 10.3 L (12.0-16.0) g/dL Hct 33.4 L (36.0-46.0) % MCV 86.5 (80.0-98.0) fL MCH 26.7 L (27.0-32.0) pg MCHC 30.8 L (31.0-37.0) g/dL RDW Std Deviation 56.9 (28.0-62.0) fl RDW Coeff of Blaine 18 H (11.0-15.0) % Plt Count 216 (150-400) K/uL MPV 10.00 (7.40-12.00) fL Add Manual Diff YES Neutrophils % (Manual) 90 H (48.0-80.0) % Band Neutrophils % 1 % Lymphocytes % (Manual) 2 L (16.0-40.0) % Monocytes % (Manual) 5 (0.0-15.0) % Eosinophils % (Manual) 1 (0.0-7.0) % Myelocytes % 1 % Nucleated RBC % 0.2 /100WBC Absolute Seg Neuts 11.2 H (1.4-5.7) Band Neutrophils # 0.1 Lymphocytes # (Manual) 0.2 L (0.6-2.4) Monocytes # (Manual) 0.6 (0.0-0.8) Eosinophils # (Manual) 0.1 (0.0-0.7) Absolute Myelocytes 0.1 Nucleated RBCs # 0 K/uL INR 1.24 Sodium 132 L (136-145) mmol/L Potassium 3.8 (3.5-5.1) mmol/L Chloride 100 (98-107) mmol/L Carbon Dioxide 22.4 (21.0-32.0) mmol/L BUN 51 H (7.0-18.0) mg/dL Creatinine 1.3 H (0.6-1.0) mg/dL Est Cr Clr Drug Dosing 24.57 mL/min Estimated GFR (MDRD) 38.8 ml/min Glucose 90 (74-106) mg/dL Calcium 9.2 (8.5-10.1) mg/dL Total Bilirubin 0.6 (0.2-1.0) mg/dL AST 23 (15-37) IU/L ALT 14 (14-63) IU/L Alkaline Phosphatase 87 (46-116) U/L Troponin I < 0.050 (0.000-0.056) ng/mL B-Natriuretic Peptide (<100) PG/ML Total Protein 7.7 (6.4-8.2) g/dL Albumin 2.4 L (3.4-5.0) g/dL Globulin 5.3 H (2.6-4.0) g/dL Albumin/Globulin Ratio 0.5 L (0.9-1.6) Urine Color Urine Appearance Urine pH (5.0-8.0) Ur Specific Freeman (1.001-1.035) Urine Protein (NEGATIVE) mg/dL Urine Glucose (UA) (NEGATIVE) mg/dL Urine Ketones (NEGATIVE) mg/dL Urine Occult Blood (NEGATIVE) Urine Nitrite (NEGATIVE) Urine Bilirubin (NEGATIVE) Urine Urobilinogen (<2.0) EU/dL Ur Leukocyte Esterase (NEGATIVE) Urine RBC (0-2/HPF) Urine WBC (0-5/HPF) Ur Epithelial Cells (NONE-FEW) Urine Bacteria (NEGATIVE) Urine Mucus (NONE-MOD) 09/07/18 09/07/18 09/08/18 Range/Units 11:26 12:50 04:55 WBC 8.75 (4.0-11.0) K/uL RBC 3.68 L (4.30-5.90) M/uL Hgb 9.8 L (12.0-16.0) g/dL Hct 32.3 L (36.0-46.0) % MCV 87.8 (80.0-98.0) fL MCH 26.6 L (27.0-32.0) pg MCHC 30.3 L (31.0-37.0) g/dL RDW Std Deviation 58.0 (28.0-62.0) fl RDW Coeff of Blaine 18 H (11.0-15.0) % Plt Count 214 (150-400) K/uL MPV 10.40 (7.40-12.00) fL Add Manual Diff YES Neutrophils % (Manual) 63 (48.0-80.0) % Band Neutrophils % 4 % Lymphocytes % (Manual) 26 (16.0-40.0) % Monocytes % (Manual) 7 (0.0-15.0) % Eosinophils % (Manual) (0.0-7.0) % Myelocytes % % Nucleated RBC % 0.0 /100WBC Absolute Seg Neuts 5.5 (1.4-5.7) Band Neutrophils # 0.4 Lymphocytes # (Manual) 2.3 (0.6-2.4) Monocytes # (Manual) 0.6 (0.0-0.8) Eosinophils # (Manual) (0.0-0.7) Absolute Myelocytes Nucleated RBCs # 0 K/uL INR Sodium (136-145) mmol/L Potassium (3.5-5.1) mmol/L Chloride (98-107) mmol/L Carbon Dioxide (21.0-32.0) mmol/L BUN (7.0-18.0) mg/dL Creatinine (0.6-1.0) mg/dL Est Cr Clr Drug Dosing mL/min Estimated GFR (MDRD) ml/min Glucose (74-106) mg/dL Calcium (8.5-10.1) mg/dL Total Bilirubin (0.2-1.0) mg/dL AST (15-37) IU/L ALT (14-63) IU/L Alkaline Phosphatase (46-116) U/L Troponin I (0.000-0.056) ng/mL B-Natriuretic Peptide 721 H (<100) PG/ML Total Protein (6.4-8.2) g/dL Albumin (3.4-5.0) g/dL Globulin (2.6-4.0) g/dL Albumin/Globulin Ratio (0.9-1.6) Urine Color YELLOW Urine Appearance SLT CLOUDY Urine pH 5.5 (5.0-8.0) Ur Specific Freeman 1.020 (1.001-1.035) Urine Protein NEGATIVE (NEGATIVE) mg/dL Urine Glucose (UA) NEGATIVE (NEGATIVE) mg/dL Urine Ketones NEGATIVE (NEGATIVE) mg/dL Urine Occult Blood NEGATIVE (NEGATIVE) Urine Nitrite NEGATIVE (NEGATIVE) Urine Bilirubin NEGATIVE (NEGATIVE) Urine Urobilinogen 0.2 (<2.0) EU/dL Ur Leukocyte Esterase SMALL H (NEGATIVE) Urine RBC 0-2 (0-2/HPF) Urine WBC 8-10 (0-5/HPF) Ur Epithelial Cells MODERATE (NONE-FEW) Urine Bacteria 1+ H (NEGATIVE) Urine Mucus LIGHT (NONE-MOD) 09/08/18 Range/Units 04:55 WBC (4.0-11.0) K/uL RBC (4.30-5.90) M/uL Hgb (12.0-16.0) g/dL Hct (36.0-46.0) % MCV (80.0-98.0) fL MCH (27.0-32.0) pg MCHC (31.0-37.0) g/dL RDW Std Deviation (28.0-62.0) fl RDW Coeff of Blaine (11.0-15.0) % Plt Count (150-400) K/uL MPV (7.40-12.00) fL Add Manual Diff Neutrophils % (Manual) (48.0-80.0) % Band Neutrophils % % Lymphocytes % (Manual) (16.0-40.0) % Monocytes % (Manual) (0.0-15.0) % Eosinophils % (Manual) (0.0-7.0) % Myelocytes % % Nucleated RBC % /100WBC Absolute Seg Neuts (1.4-5.7) Band Neutrophils # Lymphocytes # (Manual) (0.6-2.4) Monocytes # (Manual) (0.0-0.8) Eosinophils # (Manual) (0.0-0.7) Absolute Myelocytes Nucleated RBCs # K/uL INR Sodium 134 L (136-145) mmol/L Potassium 3.7 (3.5-5.1) mmol/L Chloride 102 (98-107) mmol/L Carbon Dioxide 24.9 (21.0-32.0) mmol/L BUN 43 H (7.0-18.0) mg/dL Creatinine 1.2 H (0.6-1.0) mg/dL Est Cr Clr Drug Dosing 26.62 mL/min Estimated GFR (MDRD) 42.6 ml/min Glucose 95 (74-106) mg/dL Calcium 8.3 L (8.5-10.1) mg/dL Total Bilirubin (0.2-1.0) mg/dL AST (15-37) IU/L ALT (14-63) IU/L Alkaline Phosphatase (46-116) U/L Troponin I (0.000-0.056) ng/mL B-Natriuretic Peptide (<100) PG/ML Total Protein (6.4-8.2) g/dL Albumin (3.4-5.0) g/dL Globulin (2.6-4.0) g/dL Albumin/Globulin Ratio (0.9-1.6) Urine Color Urine Appearance Urine pH (5.0-8.0) Ur Specific Freeman (1.001-1.035) Urine Protein (NEGATIVE) mg/dL Urine Glucose (UA) (NEGATIVE) mg/dL Urine Ketones (NEGATIVE) mg/dL Urine Occult Blood (NEGATIVE) Urine Nitrite (NEGATIVE) Urine Bilirubin (NEGATIVE) Urine Urobilinogen (<2.0) EU/dL Ur Leukocyte Esterase (NEGATIVE) Urine RBC (0-2/HPF) Urine WBC (0-5/HPF) Ur Epithelial Cells (NONE-FEW) Urine Bacteria (NEGATIVE) Urine Mucus (NONE-MOD) Ryan Results Last 24 Hours: Microbiology 09/07/18 17:10 Clostridium difficile Toxin A & B - Final Stool / Feces Positive C. Diff Antigen 09/07/18 17:10 Campylobacter Antigen Assay - Final Stool / Feces NEGATIVE CAMPYLOBACTER AG REFERENCE RANGE: NEGATIVE Med Orders - Current: Current Medications Acetaminophen (Tylenol) 650 mg PO Q4H PRN PRN Reason: Pain (mild 1-3) Fish Oil (Fish Oil) 1 gm PO DAILY [facility] Last Admin: 09/08/18 09:01 Dose: 1 gm Ceftriaxone Sodium/Dextrose 1 (gm/ Premix) 50 mls @ 100 mls/hr IV Q24H [facility] Last Admin: 09/07/18 15:38 Dose: 100 mls/hr Multivitamins/Minerals/Vitamin C (Tab-A-Irene) 1 tab PO DAILY [facility] Last Admin: 09/08/18 09:01 Dose: 1 tab Ondansetron HCl (Zofran) 4 mg IVPUSH Q4H PRN PRN Reason: Nausea Rivaroxaban (Xarelto) 20 mg PO DAILY@1730 [facility] Last Admin: 09/07/18 17:59 Dose: 20 mg Sertraline HCl (Zoloft) 100 mg PO DAILY [facility] Last Admin: 09/08/18 09:01 Dose: 100 mg Sodium Chloride (Saline Flush) 10 ml FLUSH ASDIRECTED PRN PRN Reason: Keep Vein Open Last Admin: 09/07/18 11:41 Dose: 10 ml Sodium Chloride (Saline Flush) 2.5 ml FLUSH ASDIRECTED PRN PRN Reason: Keep Vein Open Last Admin: 09/07/18 11:42 Dose: 2.5 ml Vancomycin HCl (First-Vancomycin 25 Compounding Kit) 125 mg PO QID [facility] Discontinued Medications Albuterol/Ipratropium (Duoneb 3.0-0.5 Mg/3 Ml) 3 ml NEB ONETIME ONE Stop: 09/07/18 11:19 Last Admin: 09/07/18 11:47 Dose: 3 ml Furosemide (Lasix) 20 mg IVPUSH NOW ONE Stop: 09/07/18 11:19 Last Admin: 09/07/18 11:42 Dose: 20 mg Sodium Chloride (Normal Saline) 500 mls @ 999 mls/hr IV STAT [facility]AYE Last Admin: 09/07/18 11:39 Dose: 999 mls/hr Sodium Chloride (Normal Saline) 1,000 mls @ 50 mls/hr IV STAT ONE Stop: 09/08/18 08:49 Last Admin: 09/07/18 14:06 Dose: 50 mls/hr Sodium Chloride (Normal Saline) 1,000 mls @ 50 mls/hr IV ASDIRECTED [facility] Last Admin: 09/07/18 17:55 Dose: 50 mls/hr Vancomycin HCl (Vancomycin) 250 mg PO Q6H [facility] Last Admin: 09/08/18 03:41 Dose: 250 mg - Exam Quality Assessment: Supplemental Oxygen, DVT Prophylaxis General: Alert, Oriented, Cooperative, No Acute Distress Lungs: Clear to Auscultation, Normal Respiratory Effort Cardiovascular: Regular Rate, Regular Rhythm GI/Abdominal Exam: Normal Bowel Sounds, Soft, Non-Tender Back Exam: Normal Inspection Extremities: Normal Inspection, Normal Range of Motion, Non-Tender, No Pedal Edema Neurological: No New Focal Deficit Psy/Mental Status: Alert, Normal Affect, Normal Mood - Problem List & Annotations (1) Dehydration SNOMED Code(s): 06331453 Code(s): E86.0 - DEHYDRATION Status: Acute Current Visit: Yes (2) Diarrhea SNOMED Code(s): 65149118 Code(s): R19.7 - DIARRHEA, UNSPECIFIED Status: Acute Current Visit: Yes (3) UTI (urinary tract infection) SNOMED Code(s): 17663360 Code(s): N39.0 - URINARY TRACT INFECTION, SITE NOT SPECIFIED Status: Acute Current Visit: Yes (4) HTN (hypertension) SNOMED Code(s): 20408058 Code(s): I10 - ESSENTIAL (PRIMARY) HYPERTENSION Status: Chronic Current Visit: Yes Qualifiers: Hypertension type: essential hypertension Qualified Code(s): I10 - Essential (primary) hypertension (5) Afib SNOMED Code(s): 92164854 Code(s): I48.91 - UNSPECIFIED ATRIAL FIBRILLATION Status: Chronic Current Visit: Yes Qualifiers: Atrial fibrillation type: chronic Qualified Code(s): I48.2 - Chronic atrial fibrillation (6) Anticoagulation adequate SNOMED Code(s): 345903032, 944130119 Code(s): 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 Status: Chronic Current Visit: Yes (7) Pacemaker SNOMED Code(s): 586957052 Code(s): Z95.0 - PRESENCE OF CARDIAC PACEMAKER Status: Chronic Current Visit: Yes (8) Pulmonary hypertension SNOMED Code(s): 17901253 Code(s): I27.20 - PULMONARY HYPERTENSION, UNSPECIFIED Status: Acute Current Visit: Yes (9) Tricuspid regurgitation SNOMED Code(s): 148348398 Code(s): I07.1 - RHEUMATIC TRICUSPID INSUFFICIENCY Status: Chronic Current Visit: Yes - Problem List Review Problem List Initiated/Reviewed/Updated: Yes - My Orders Last 24 Hours: My Active Orders 09/07/18 14:07 Antiembolic Devices [RC] PER UNIT ROUTINE Height and Weight [RC] DAILY Oxygen Therapy [RC] PRN Up With Assistance [RC] ASDIRECTED VTE/DVT Education [RC] PER UNIT ROUTINE Vital Signs [RC] Q4H Acetaminophen [Tylenol] 650 mg PO Q4H PRN Ondansetron [Zofran] 4 mg IVPUSH Q4H PRN Antiembolic Hose [OM.PC] Per Unit Routine Resuscitation Status Routine 09/07/18 14:09 Intake and Output Strict [RC] Q12H Isolation [COMM] Stat 09/07/18 14:12 Telemetry Monitoring [Cardiac Monitoring] [RC] . DIRECTED 09/07/18 15:00 cefTRIAXone [Rocephin in Dextrose,Iso-Osm 1 GM/50 ML] 1 gm Premix Bag 1 bag IV Q24H 09/07/18 17:10 CULTURE STOOL + CAMPY+SHIGATOX [RM] Routine 09/07/18 17:30 Rivaroxaban [Xarelto] 20 mg PO DAILY@1730 09/07/18 Lunch 2 Gram Sodium Diet [DIET] 09/08/18 09:00 Fish Oil/[place]-3 Fatty Acids [Fish Oil] 1 gm PO DAILY Multivitamins [Tab-A-Irene] 1 tab PO DAILY Sertraline [Zoloft] 100 mg PO DAILY Vancomycin [First-Vancomycin 25 Compounding Kit] 125 mg PO QID - Plan Plan:: This 88 year old female admitted with dehydration, diarrhea and UTI 1. Dehydration: Improved. Will stop IVFs. Monitor. 2. Diarrhea: Cdiff antigen. Vancomycin 125 mg QID PO. 3. UTI: UC pending. Continue Rocephin. 4. HTN: Improved. Will slowly restart antihypertensives. 5. Afib: Continue Xarelto. Monitor on telemetry. 6. CHF: Stable. Monitor fluid status closely. Daily weights Strict I/O. Weight at 95 kg, which is near dry weight per Dr Mancia note. VTE prophylaxis: Continue Xarelto Dispo: 1 day <Dakota Salazar - Last Filed: 09/08/18 10:57> - General Info Admission Dx/Problem (Free Text): I have examined the patient independently of Zoie Brooks CNP. I have discussed the case with her. I have reviewed and agree with the examination and plan as outlined by her. Please see orders. - Patient Data Vitals - Most Recent: Last Vital Signs Temp 36.7 C 09/08/18 08:00 Pulse 77 09/08/18 08:00 Resp 18 09/08/18 08:00 BP 115/58 L 09/08/18 08:00 Pulse Ox 95 09/08/18 08:00 I&O - Last 24 Hours: Intake & Output 09/07/18 09/08/18 09/08/18 22:59 06:59 14:59 Intake Total 120 550 Output Total 100 350 Balance 20 200 Lab Results Last 24 Hours: Laboratory Results - last 24 hr 09/07/18 09/07/18 09/07/18 Range/Units 11:26 11:26 11:26 WBC 12.39 H (4.0-11.0) K/uL RBC 3.86 L (4.30-5.90) M/uL Hgb 10.3 L (12.0-16.0) g/dL Hct 33.4 L (36.0-46.0) % MCV 86.5 (80.0-98.0) fL MCH 26.7 L (27.0-32.0) pg MCHC 30.8 L (31.0-37.0) g/dL RDW Std Deviation 56.9 (28.0-62.0) fl RDW Coeff of Blaine 18 H (11.0-15.0) % Plt Count 216 (150-400) K/uL MPV 10.00 (7.40-12.00) fL Add Manual Diff YES Neutrophils % (Manual) 90 H (48.0-80.0) % Band Neutrophils % 1 % Lymphocytes % (Manual) 2 L (16.0-40.0) % Monocytes % (Manual) 5 (0.0-15.0) % Eosinophils % (Manual) 1 (0.0-7.0) % Myelocytes % 1 % Nucleated RBC % 0.2 /100WBC Absolute Seg Neuts 11.2 H (1.4-5.7) Band Neutrophils # 0.1 Lymphocytes # (Manual) 0.2 L (0.6-2.4) Monocytes # (Manual) 0.6 (0.0-0.8) Eosinophils # (Manual) 0.1 (0.0-0.7) Absolute Myelocytes 0.1 Nucleated RBCs # 0 K/uL INR 1.24 Sodium 132 L (136-145) mmol/L Potassium 3.8 (3.5-5.1) mmol/L Chloride 100 (98-107) mmol/L Carbon Dioxide 22.4 (21.0-32.0) mmol/L BUN 51 H (7.0-18.0) mg/dL Creatinine 1.3 H (0.6-1.0) mg/dL Est Cr Clr Drug Dosing 24.57 mL/min Estimated GFR (MDRD) 38.8 ml/min Glucose 90 (74-106) mg/dL Calcium 9.2 (8.5-10.1) mg/dL Total Bilirubin 0.6 (0.2-1.0) mg/dL AST 23 (15-37) IU/L ALT 14 (14-63) IU/L Alkaline Phosphatase 87 (46-116) U/L Troponin I < 0.050 (0.000-0.056) ng/mL B-Natriuretic Peptide (<100) PG/ML Total Protein 7.7 (6.4-8.2) g/dL Albumin 2.4 L (3.4-5.0) g/dL Globulin 5.3 H (2.6-4.0) g/dL Albumin/Globulin Ratio 0.5 L (0.9-1.6) Urine Color Urine Appearance Urine pH (5.0-8.0) Ur Specific Freeman (1.001-1.035) Urine Protein (NEGATIVE) mg/dL Urine Glucose (UA) (NEGATIVE) mg/dL Urine Ketones (NEGATIVE) mg/dL Urine Occult Blood (NEGATIVE) Urine Nitrite (NEGATIVE) Urine Bilirubin (NEGATIVE) Urine Urobilinogen (<2.0) EU/dL Ur Leukocyte Esterase (NEGATIVE) Urine RBC (0-2/HPF) Urine WBC (0-5/HPF) Ur Epithelial Cells (NONE-FEW) Urine Bacteria (NEGATIVE) Urine Mucus (NONE-MOD) 09/07/18 09/07/18 09/08/18 Range/Units 11:26 12:50 04:55 WBC 8.75 (4.0-11.0) K/uL RBC 3.68 L (4.30-5.90) M/uL Hgb 9.8 L (12.0-16.0) g/dL Hct 32.3 L (36.0-46.0) % MCV 87.8 (80.0-98.0) fL MCH 26.6 L (27.0-32.0) pg MCHC 30.3 L (31.0-37.0) g/dL RDW Std Deviation 58.0 (28.0-62.0) fl RDW Coeff of Blaine 18 H (11.0-15.0) % Plt Count 214 (150-400) K/uL MPV 10.40 (7.40-12.00) fL Add Manual Diff YES Neutrophils % (Manual) 63 (48.0-80.0) % Band Neutrophils % 4 % Lymphocytes % (Manual) 26 (16.0-40.0) % Monocytes % (Manual) 7 (0.0-15.0) % Eosinophils % (Manual) (0.0-7.0) % Myelocytes % % Nucleated RBC % 0.0 /100WBC Absolute Seg Neuts 5.5 (1.4-5.7) Band Neutrophils # 0.4 Lymphocytes # (Manual) 2.3 (0.6-2.4) Monocytes # (Manual) 0.6 (0.0-0.8) Eosinophils # (Manual) (0.0-0.7) Absolute Myelocytes Nucleated RBCs # 0 K/uL INR Sodium (136-145) mmol/L Potassium (3.5-5.1) mmol/L Chloride (98-107) mmol/L Carbon Dioxide (21.0-32.0) mmol/L BUN (7.0-18.0) mg/dL Creatinine (0.6-1.0) mg/dL Est Cr Clr Drug Dosing mL/min Estimated GFR (MDRD) ml/min Glucose (74-106) mg/dL Calcium (8.5-10.1) mg/dL Total Bilirubin (0.2-1.0) mg/dL AST (15-37) IU/L ALT (14-63) IU/L Alkaline Phosphatase (46-116) U/L Troponin I (0.000-0.056) ng/mL B-Natriuretic Peptide 721 H (<100) PG/ML Total Protein (6.4-8.2) g/dL Albumin (3.4-5.0) g/dL Globulin (2.6-4.0) g/dL Albumin/Globulin Ratio (0.9-1.6) Urine Color YELLOW Urine Appearance SLT CLOUDY Urine pH 5.5 (5.0-8.0) Ur Specific Freeman 1.020 (1.001-1.035) Urine Protein NEGATIVE (NEGATIVE) mg/dL Urine Glucose (UA) NEGATIVE (NEGATIVE) mg/dL Urine Ketones NEGATIVE (NEGATIVE) mg/dL Urine Occult Blood NEGATIVE (NEGATIVE) Urine Nitrite NEGATIVE (NEGATIVE) Urine Bilirubin NEGATIVE (NEGATIVE) Urine Urobilinogen 0.2 (<2.0) EU/dL Ur Leukocyte Esterase SMALL H (NEGATIVE) Urine RBC 0-2 (0-2/HPF) Urine WBC 8-10 (0-5/HPF) Ur Epithelial Cells MODERATE (NONE-FEW) Urine Bacteria 1+ H (NEGATIVE) Urine Mucus LIGHT (NONE-MOD) 09/08/ Range/Units 04:55 WBC (4.0-11.0) K/uL RBC (4.30-5.90) M/uL Hgb (12.0-16.0) g/dL Hct (36.0-46.0) % MCV (80.0-98.0) fL MCH (27.0-32.0) pg MCHC (31.0-37.0) g/dL RDW Std Deviation (28.0-62.0) fl RDW Coeff of Blaine (11.0-15.0) % Plt Count (150-400) K/uL MPV (7.40-12.00) fL Add Manual Diff Neutrophils % (Manual) (48.0-80.0) % Band Neutrophils % % Lymphocytes % (Manual) (16.0-40.0) % Monocytes % (Manual) (0.0-15.0) % Eosinophils % (Manual) (0.0-7.0) % Myelocytes % % Nucleated RBC % /100WBC Absolute Seg Neuts (1.4-5.7) Band Neutrophils # Lymphocytes # (Manual) (0.6-2.4) Monocytes # (Manual) (0.0-0.8) Eosinophils # (Manual) (0.0-0.7) Absolute Myelocytes Nucleated RBCs # K/uL INR Sodium 134 L (136-145) mmol/L Potassium 3.7 (3.5-5.1) mmol/L Chloride 102 (98-107) mmol/L Carbon Dioxide 24.9 (21.0-32.0) mmol/L BUN 43 H (7.0-18.0) mg/dL Creatinine 1.2 H (0.6-1.0) mg/dL Est Cr Clr Drug Dosing 26.62 mL/min Estimated GFR (MDRD) 42.6 ml/min Glucose 95 (74-106) mg/dL Calcium 8.3 L (8.5-10.1) mg/dL Total Bilirubin (0.2-1.0) mg/dL AST (15-37) IU/L ALT (14-63) IU/L Alkaline Phosphatase (46-116) U/L Troponin I (0.000-0.056) ng/mL B-Natriuretic Peptide (<100) PG/ML Total Protein (6.4-8.2) g/dL Albumin (3.4-5.0) g/dL Globulin (2.6-4.0) g/dL Albumin/Globulin Ratio (0.9-1.6) Urine Color Urine Appearance Urine pH (5.0-8.0) Ur Specific [place] (1.001-1.035) Urine Protein (NEGATIVE) mg/dL Urine Glucose (UA) (NEGATIVE) mg/dL Urine Ketones (NEGATIVE) mg/dL Urine Occult Blood (NEGATIVE) Urine Nitrite (NEGATIVE) Urine Bilirubin (NEGATIVE) Urine Urobilinogen (<2.0) EU/dL Ur Leukocyte Esterase (NEGATIVE) Urine RBC (0-2/HPF) Urine WBC (0-5/HPF) Ur Epithelial Cells (NONE-FEW) Urine Bacteria (NEGATIVE) Urine Mucus (NONE-MOD) Ryan Results Last 24 Hours: Microbiology 09/07/18 17:10 Clostridium difficile Toxin A & B - Final Stool / Feces Positive C. Diff Antigen 09/07/18 17:10 Campylobacter Antigen Assay - Final Stool / Feces NEGATIVE CAMPYLOBACTER AG REFERENCE RANGE: NEGATIVE Med Orders - Current: Current Medications Acetaminophen (Tylenol) 650 mg PO Q4H PRN PRN Reason: Pain (mild 1-3) Diltiazem HCl (Cardizem Cd) 240 mg PO DAILY [facility] Fish Oil (Fish Oil) 1 gm PO DAILY [facility] Last Admin: 09/08/18 09:01 Dose: 1 gm Ceftriaxone Sodium/Dextrose 1 (gm/ Premix) 50 mls @ 100 mls/hr IV Q24H [facility] Last Admin: 09/07/18 15:38 Dose: 100 mls/hr Metoprolol Tartrate (Lopressor) 100 mg PO BID [facility] Multivitamins/Minerals/Vitamin C (Tab-A-Irene) 1 tab PO DAILY [facility] Last Admin: 09/08/18 09:01 Dose: 1 tab Ondansetron HCl (Zofran) 4 mg IVPUSH Q4H PRN PRN Reason: Nausea Rivaroxaban (Xarelto) 20 mg PO DAILY@1730 [facility] Last Admin: 09/07/18 17:59 Dose: 20 mg Sertraline HCl (Zoloft) 100 mg PO DAILY [facility] Last Admin: 09/08/18 09:01 Dose: 100 mg Sodium Chloride (Saline Flush) 10 ml FLUSH ASDIRECTED PRN PRN Reason: Keep Vein Open Last Admin: 09/07/18 11:41 Dose: 10 ml Sodium Chloride (Saline Flush) 2.5 ml FLUSH ASDIRECTED PRN PRN Reason: Keep Vein Open Last Admin: 09/07/18 11:42 Dose: 2.5 ml Vancomycin HCl (First-Vancomycin 25 Compounding Kit) 125 mg PO QID [facility] Last Admin: 09/08/18 09:22 Dose: 5 ml Discontinued Medications Albuterol/Ipratropium (Duoneb 3.0-0.5 Mg/3 Ml) 3 ml NEB ONETIME ONE Stop: 09/07/18 11:19 Last Admin: 09/07/18 11:47 Dose: 3 ml Furosemide (Lasix) 20 mg IVPUSH NOW ONE Stop: 09/07/18 11:19 Last Admin: 09/07/18 11:42 Dose: 20 mg Sodium Chloride (Normal Saline) 500 mls @ 999 mls/hr IV STAT [facility] Last Admin: 09/07/18 11:39 Dose: 999 mls/hr Sodium Chloride (Normal Saline) 1,000 mls @ 50 mls/hr IV STAT ONE Stop: 09/08/18 08:49 Last Admin: 09/07/18 14:06 Dose: 50 mls/hr Sodium Chloride (Normal Saline) 1,000 mls @ 50 mls/hr IV ASDIRECTED [facility] Last Admin: 09/07/18 17:55 Dose: 50 mls/hr Vancomycin HCl (Vancomycin) 250 mg PO Q6H [facility] Last Admin: 09/08/18 03:41 Dose: 250 mg
[2018-09-08] MEDS: Vancomycin 25 MG/ML Compounding Kit PO SCH ×4 (09:22→23:31)
[2018-09-08] MEDS: Metoprolol Tartrate 50 MG Tab PO SCH ×2 (11:48→21:19)
[2018-09-08] MEDS: Diltiazem 120 MG Cap.CD PO SCH (11:49)
[2018-09-08] MEDS: cefTRIAXone 1 GM in Premix Bag 1 BAG IV SCH (15:12)
[2018-09-08] MEDS: Rivaroxaban 10 MG Tab PO SCH (18:01)
[2018-09-09] MEDS: Vancomycin 25 MG/ML Compounding Kit PO SCH ×4 (06:14→23:15)
[2018-09-09] MEDS: Diltiazem 120 MG Cap.CD PO SCH (09:34)
[2018-09-09] MEDS: Metoprolol Tartrate 50 MG Tab PO SCH ×2 (09:34→21:13)
[2018-09-09] MEDS: Fish Oil/Omega-3 Fatty Acids 1 Gm Cap PO SCH (09:35)
[2018-09-09] MEDS: Multivitamin Tab PO SCH (09:35)
[2018-09-09] MEDS: Sertraline 100 MG Tab PO SCH (09:35)
[2018-09-09] MEDS: Losartan 50 MG Tab PO SCH (09:35)
--- NOTE | 2018-09-09 11:12 | PCM.PN ---
- General Info Date of Service: 09/09/18 Admission Dx/Problem (Free Text): Dehydration Subjective Update: The patient is an 88-year-old lady with a chronic medical history including pulmonary hypertension and tricuspid regurgitation was admitted secondary to hypotension and dehydration. The patient today says that she is still had diarrhea. She been previously diagnosed with C. difficile colitis. She does not feel like she has the ability to go home today. Patient also says that she has gained some weight and her feet are puffy. Functional Status: Reports: Pain Controlled - Review of Systems General: Reports: Weakness HEENT: Reports: No Symptoms Pulmonary: Reports: Shortness of Breath Cardiovascular: Reports: Edema Gastrointestinal: Reports: No Symptoms Genitourinary: Reports: No Symptoms Musculoskeletal: Reports: No Symptoms Skin: Reports: No Symptoms Neurological: Reports: No Symptoms Psychiatric: Reports: No Symptoms - Patient Data Vitals - Most Recent: Last Vital Signs Temp 36.9 C 09/09/18 07:40 Pulse 67 09/09/18 09:34 Resp 20 09/09/18 07:40 BP 139/57 L 09/09/18 09:35 Pulse Ox 94 L 09/09/18 07:40 Weight - Most Recent: 96.479 kg I&O - Last 24 Hours: Intake & Output 09/08/18 09/09/18 09/09/18 22:59 06:59 14:59 Intake Total 750 350 Output Total 700 300 Balance 50 50 Lab Results Last 24 Hours: Laboratory Results - last 24 hr 09/09/18 09/09/18 Range/Units 05:35 05:35 WBC 9.86 (4.0-11.0) K/uL RBC 3.72 L (4.30-5.90) M/uL Hgb 10.1 L (12.0-16.0) g/dL Hct 32.5 L (36.0-46.0) % MCV 87.4 (80.0-98.0) fL MCH 27.2 (27.0-32.0) pg MCHC 31.1 (31.0-37.0) g/dL RDW Std Deviation 57.1 (28.0-62.0) fl RDW Coeff of Blaine 18 H (11.0-15.0) % Plt Count 226 (150-400) K/uL MPV 9.90 (7.40-12.00) fL Neut % (Auto) 71.9 (48.0-80.0) % Lymph % (Auto) 12.5 L (16.0-40.0) % [place] % (Auto) 12.4 (0.0-15.0) % Eos % (Auto) 2.7 (0.0-7.0) % Baso % (Auto) 0.5 (0.0-1.5) % Neut # (Auto) 7.1 H (1.4-5.7) K/uL Lymph # (Auto) 1.2 (0.6-2.4) K/uL [place] # (Auto) 1.2 H (0.0-0.8) K/uL Eos # (Auto) 0.3 (0.0-0.7) K/uL Baso # (Auto) 0.1 (0.0-0.1) K/uL Nucleated RBC % 0.0 /100WBC Nucleated RBCs # 0 K/uL Sodium 136 (136-145) mmol/L Potassium 3.8 (3.5-5.1) mmol/L Chloride 103 (98-107) mmol/L Carbon Dioxide 25.9 (21.0-32.0) mmol/L BUN 33 H (7.0-18.0) mg/dL Creatinine 1.1 H (0.6-1.0) mg/dL Est Cr Clr Drug Dosing 29.04 mL/min Estimated GFR (MDRD) 47.1 ml/min Glucose 87 (74-106) mg/dL Calcium 8.5 (8.5-10.1) mg/dL Ryan Results Last 24 Hours: Microbiology 09/07/18 17:10 Stool Culture - Final Stool / Feces NO SALMONELLA, SHIGELLA,OR E.COLI O157 ISOLATED Campylobacter Antigen Assay - Final NEGATIVE CAMPYLOBACTER AG REFERENCE RANGE: NEGATIVE Shiga Toxin I - Final NEGATIVE FOR SHIGA TOXIN 1 REFERENCE RANGE: NEGATIVE Shiga Toxin II - Final NEGATIVE FOR SHIGA TOXIN 2 REFERENCE RANGE: NEGATIVE 09/07/18 12:50 Urine Culture - Final Urine, Clean Catch MIXED YULIA >100,000 CFU/ML Med Orders - Current: Current Medications Acetaminophen (Tylenol) 650 mg PO Q4H PRN PRN Reason: Pain (mild 1-3) Diltiazem HCl (Cardizem Cd) 240 mg PO DAILY [facility] Last Admin: 09/09/18 09:34 Dose: 240 mg Fish Oil (Fish Oil) 1 gm PO DAILY [facility] Last Admin: 09/09/18 09:35 Dose: 1 gm Ceftriaxone Sodium/Dextrose 1 (gm/ Premix) 50 mls @ 100 mls/hr IV Q24H [facility] Last Admin: 09/08/18 15:12 Dose: 100 mls/hr Losartan Potassium (Cozaar) 50 mg PO DAILY [facility] Last Admin: 09/09/18 09:35 Dose: 50 mg Metoprolol Tartrate (Lopressor) 100 mg PO BID [facility] Last Admin: 09/09/18 09:34 Dose: 100 mg Multivitamins/Minerals/Vitamin C (Tab-A-Irene) 1 tab PO DAILY [facility] Last Admin: 09/09/18 09:35 Dose: 1 tab Ondansetron HCl (Zofran) 4 mg IVPUSH Q4H PRN PRN Reason: Nausea Rivaroxaban (Xarelto) 20 mg PO DAILY@1730 [facility] Last Admin: 09/08/18 18:01 Dose: 20 mg Sertraline HCl (Zoloft) 100 mg PO DAILY [facility] Last Admin: 09/09/18 09:35 Dose: 100 mg Sodium Chloride (Saline Flush) 10 ml FLUSH ASDIRECTED PRN PRN Reason: Keep Vein Open Last Admin: 09/07/18 11:41 Dose: 10 ml Sodium Chloride (Saline Flush) 2.5 ml FLUSH ASDIRECTED PRN PRN Reason: Keep Vein Open Last Admin: 09/07/18 11:42 Dose: 2.5 ml Vancomycin HCl (First-Vancomycin 25 Compounding Kit) 125 mg PO QID [facility] Last Admin: 09/09/18 06:14 Dose: 5 ml Discontinued Medications Albuterol/Ipratropium (Duoneb 3.0-0.5 Mg/3 Ml) 3 ml NEB ONETIME ONE Stop: 09/07/18 11:19 Last Admin: 09/07/18 11:47 Dose: 3 ml Furosemide (Lasix) 20 mg IVPUSH NOW ONE Stop: 09/07/18 11:19 Last Admin: 09/07/18 11:42 Dose: 20 mg Sodium Chloride (Normal Saline) 500 mls @ 999 mls/hr IV STAT [facility] Last Admin: 09/07/18 11:39 Dose: 999 mls/hr Sodium Chloride (Normal Saline) 1,000 mls @ 50 mls/hr IV STAT ONE Stop: 09/08/18 08:49 Last Admin: 09/07/18 14:06 Dose: 50 mls/hr Sodium Chloride (Normal Saline) 1,000 mls @ 50 mls/hr IV ASDIRECTED [facility] Last Admin: 09/07/18 17:55 Dose: 50 mls/hr Vancomycin HCl (Vancomycin) 250 mg PO Q6H [facility] Last Admin: 09/08/18 03:41 Dose: 250 mg - Exam Quality Assessment: No: Supplemental Oxygen General: Alert, Oriented, Cooperative HEENT: Pupils Equal, Pupils Reactive, EOMI. No: Mucous Membr. Moist/[place] (Dry) Neck: Supple, Trachea Midline Lungs: Normal Respiratory Effort, Rales Cardiovascular: Regular Rate, Regular Rhythm, Murmurs GI/Abdominal Exam: Normal Bowel Sounds, No Distention Back Exam: Normal Inspection (Kyphosis), Full Range of Motion (Age appropriate) Extremities: Normal Inspection (Age appropriate), Pedal Edema Skin: Warm, Dry, Intact Neurological: No New Focal Deficit Psy/Mental Status: Alert, Normal Affect, Normal Mood - Problem List & Annotations (1) C. difficile colitis SNOMED Code(s): 982497811 Code(s): A04.72 - ENTEROCOLITIS D/T CLOSTRIDIUM DIFFICILE, NOT SPCF RECUR Status: Acute Current Visit: Yes (2) Dehydration SNOMED Code(s): 44125685 Code(s): E86.0 - DEHYDRATION Status: Acute Current Visit: Yes (3) Diarrhea SNOMED Code(s): 07227460 Code(s): R19.7 - DIARRHEA, UNSPECIFIED Status: Acute Priority: High Current Visit: Yes Qualifiers: Diarrhea type: infectious Qualified Code(s): A09 - Infectious gastroenteritis and colitis, unspecified (4) Pulmonary hypertension SNOMED Code(s): 53088777 Code(s): I27.20 - PULMONARY HYPERTENSION, UNSPECIFIED Status: Acute Priority: High Current Visit: Yes - Problem List Review Problem List Initiated/Reviewed/Updated: Yes - My Orders Last 24 Hours: My Active Orders 09/08/18 17:16 May Shower [RC] ASDIRECTED - Plan Plan:: This 88 year old female admitted with dehydration, diarrhea and UTI 1. Dehydration: Improved. Will stop IVFs. Monitor. 2. Diarrhea: Cdiff antigen. Vancomycin 125 mg QID PO. 3. UTI: UC pending. Continue Rocephin. 4. HTN: Improved. Will slowly restart antihypertensives. 5. Afib: Continue Xarelto. Monitor on telemetry. 6. CHF: Stable. Monitor fluid status closely. Daily weights Strict I/O. Weight at 95 kg, which is near dry weight per Dr Mancia note. VTE prophylaxis: Continue Xarelto Dispo: 1 day The patient is a 88-year-old lady who had been admitted initially with dehydration and diarrhea. This proved to be C. difficile colitis. The patient will be kept on vancomycin 125 mg 4 times a day by mouth. The patient otherwise is improving significantly with her gentle fluid rehydration and this will be continued. I've ordered repeat laboratory studies. The patient also had gained approximately 4 kg and as a result of this she has one-time dose of Lasix 20 mg IV and this will be monitored. The patient was kept on DVT prophylaxis with the use of Xarelto. The patient should be appropriate for discharge to her assisted living center tomorrow. She does have a UTI and this will continue on Rocephin and she'll be transitioned to oral medications in the morning.
[2018-09-09] MEDS: cefTRIAXone 1 GM in Premix Bag 1 BAG IV SCH (14:31)
[2018-09-09] MEDS ORDERED: Furosemide 20 MG/2 ML VIAL IVPUSH ONE (15:11)
[2018-09-09] MEDS: Rivaroxaban 10 MG Tab PO SCH (18:02)
--- NOTE | 2018-09-10 05:46 | PCM.DCSUM1 ---
Discharge Summary - Hospital Course HPI Initial Comments: Patient was admitted to dehydration, diarrhea, C. difficile colitis, pulmonary edema due to CHF. Diagnosis: Stroke: No - Discharge Data Discharge Date: 09/10/18 Discharge Disposition: Home, Self-Care 01 Condition: Fair - Discharge Diagnosis/Problem(s) (1) C. difficile colitis SNOMED Code(s): 152621266 ICD Code: A04.72 - ENTEROCOLITIS D/T CLOSTRIDIUM DIFFICILE, NOT SPCF RECUR Status: Resolved Priority: High (2) Dehydration SNOMED Code(s): 61796421 ICD Code: E86.0 - DEHYDRATION Status: Resolved Priority: High (3) Diarrhea SNOMED Code(s): 38097962 ICD Code: R19.7 - DIARRHEA, UNSPECIFIED Status: Resolved Priority: High Qualifiers: Diarrhea type: infectious Qualified Code(s): A09 - Infectious gastroenteritis and colitis, unspecified (4) Pulmonary hypertension SNOMED Code(s): 40539282 ICD Code: I27.20 - PULMONARY HYPERTENSION, UNSPECIFIED Status: Chronic Priority: High - Patient Summary/Data Hospital Course: The patient is an 88-year-old lady who was admitted to acute hospitalization on September 07, 2018 at a concern for dehydration. He is chronically ill with A. fib, chronic anticoagulation, pacemaker, pulmonary hypertension and severe tricuspid regurgitation. She was having low blood pressure with diarrhea and poor oral intake. The patient was admitted and was started on fluid resuscitation and she tolerated this well. Laboratory testing obtained on September 07, 2018 showed that the patient was positive for C. difficile antigen. The patient at that time was started on oral vancomycin 125 mg by mouth 4 times a day. Chest x-ray on admission showed that she had cardiomegaly with increasing pulmonary markings. Because of the concern for pulmonary hypertension as well as pulmonary edema she was started on Lasix for diuresis. She was also placed on ceftriaxone 1 g IV daily. The patient did not require DVT prophylaxis that she was on Xarelto. This was continued. During the course of hospitalization the patient continued to improve albeit slowly. Patient was still having difficulty with edema of her lower extremities as well as diarrhea. On the day before discharge the patient was still having occasional loose stools, feeling weak and still had some edema in her lower extremities. She was retained one extra day and hospitalization and by day of discharge she felt like she could return to her living situation. The patient had been otherwise hemodynamically stable. Previously reported leukocytosis had resolved. The day of discharge the patient's pulse rate was 75 her blood pressure was 105/54 and she was back at her baseline with an oxygen saturation 94% on 2 L via nasal cannula. It was felt that the patient should go home on oxygen and this have been ordered. Off of oxygen while on room air the patient quickly desaturated down to 86%. The patient has been recommended to continue with her diet as tolerated. She is also to follow-up with her primary care physician. The patient is also to have her activity as tolerated. She has been hemodynamically stable and she has been discharged from acute hospitalization with recommendations listed above. - Patient Instructions Diet: Heart Healthy Diet Fluid Restriction: 2000 mL Activity: As Tolerated - Discharge Plan *PRESCRIPTION DRUG MONITORING PROGRAM REVIEWED*: No *COPY OF PRESCRIPTION DRUG MONITORING REPORT IN PATIENT OCTAVIO: No Home Medications: Home Meds Diltiazem [Cardizem CD] 240 mg PO DAILY 04/08/14 [History] Metoprolol Tartrate [Lopressor] 100 mg PO BID 04/08/14 [History] Multivits-Min/Iron/FA/Lutein [[employer] Women's Tab] 1 tab PO DAILY 04/08 [History] Isabella-3/DHA/Epa/Fish Oil [Isabella-3 Fish Oil 1,000 MG Sfgl] 1 tab PO DAILY [History] Potassium Chloride 20 meq PO DAILY 04/08/14 [History] Rivaroxaban [Xarelto] 20 mg PO DAILY 04/08/14 [History] Sertraline [Zoloft] 100 mg PO DAILY 04/08/14 [History] Zolpidem [Ambien] 5 mg PO BEDTIME PRN 04/08/14 [History] Furosemide 80 mg PO DAILY 09/07/18 [History] Losartan [Cozaar] 50 mg PO DAILY 09/07/18 [History] Nitroglycerin 1 tab PO TID PRN MDD 3 09/07/18 [History] Oxygen Therapy Mode: Nasal Cannula Oxygen Flow Rate (L/min): 2 (86% on room air) Patient Handouts: Clostridium Difficile Infection, [id number], Vancomycin oral solution, Dehydration, Elderly, Asyc-ex-Mlma, Diarrhea, Adult, [id number] Referrals: [facility] [Outside] Frederic Dillard MD [Physician] - 09/16/18 10:45 am (Please come in at 10:30) - Discharge Summary/Plan Comment DC Time >30 min.: Yes - General Info Date of Service: 09/10/18 Admission Dx/Problem (Free Text: Dehydration, diarrhea, C. difficile colitis Subjective Update: The patient feels much better today. She is breathing. She feels like she can safely go home. No diarrhea. Functional Status: Reports: Pain Controlled - Review of Systems General: Reports: No Symptoms HEENT: Reports: No Symptoms Pulmonary: Reports: No Symptoms Cardiovascular: Reports: No Symptoms Gastrointestinal: Reports: No Symptoms Genitourinary: Reports: No Symptoms Musculoskeletal: Reports: No Symptoms Skin: Reports: No Symptoms Neurological: Reports: No Symptoms Psychiatric: Reports: No Symptoms - Patient Data Vitals - Most Recent: Last Vital Signs Temp 36.2 C 09/10/18 04:26 Pulse 76 09/10/18 04:26 Resp 20 09/10/18 04:26 BP 84/48 L 09/10/18 04:26 Pulse Ox 92 L 09/10/18 04:26 Weight - Most Recent: 96.479 kg I&O - Last 24 hours: Intake & Output 09/09/18 09/09/18 09/10/18 14:59 22:59 06:59 Intake Total 760 Output Total 700 Balance 60 Lab Results - Last 24 hrs: Laboratory Results - last 24 hr 09/09/18 09/09/18 Range/Units 05:35 05:35 WBC 9.86 (4.0-11.0) K/uL RBC 3.72 L (4.30-5.90) M/uL Hgb 10.1 L (12.0-16.0) g/dL Hct 32.5 L (36.0-46.0) % MCV 87.4 (80.0-98.0) fL MCH 27.2 (27.0-32.0) pg MCHC 31.1 (31.0-37.0) g/dL RDW Std Deviation 57.1 (28.0-62.0) fl RDW Coeff of [place]aine 18 H (11.0-15.0) % Plt Count 226 (150-400) K/uL MPV 9.90 (7.40-12.00) fL Neut % (Auto) 71.9 (48.0-80.0) % Lymph % (Auto) 12.5 L (16.0-40.0) % [place] % (Auto) 12.4 (0.0-15.0) % Eos % (Auto) 2.7 (0.0-7.0) % Baso % (Auto) 0.5 (0.0-1.5) % Neut # (Auto) 7.1 H (1.4-5.7) K/uL Lymph # (Auto) 1.2 (0.6-2.4) K/uL [place] # (Auto) 1.2 H (0.0-0.8) K/uL Eos # (Auto) 0.3 (0.0-0.7) K/uL Baso # (Auto) 0.1 (0.0-0.1) K/uL Nucleated RBC % 0.0 /100WBC Nucleated RBCs # 0 K/uL Sodium 136 (136-145) mmol/L Potassium 3.8 (3.5-5.1) mmol/L Chloride 103 (98-107) mmol/L Carbon Dioxide 25.9 (21.0-32.0) mmol/L BUN 33 H (7.0-18.0) mg/dL Creatinine 1.1 H (0.6-1.0) mg/dL Est Cr Clr Drug Dosing 29.04 mL/min Estimated GFR (MDRD) 47.1 ml/min Glucose 87 (74-106) mg/dL Calcium 8.5 (8.5-10.1) mg/dL [place] Results - Last 24 hrs: Microbiology 09/07/18 17:10 Stool Culture - Final Stool / Feces NO SALMONELLA, SHIGELLA,OR E.COLI O157 ISOLATED Campylobacter Antigen Assay - Final NEGATIVE CAMPYLOBACTER AG REFERENCE RANGE: NEGATIVE Shiga Toxin I - Final NEGATIVE FOR SHIGA TOXIN 1 REFERENCE RANGE: NEGATIVE Shiga Toxin II - Final NEGATIVE FOR SHIGA TOXIN 2 REFERENCE RANGE: NEGATIVE 09/07/18 12:50 Urine Culture - Final Urine, Clean Catch MIXED YULIA >100,000 CFU/ML Med Orders - Current: Current Medications Acetaminophen (Tylenol) 650 mg PO Q4H PRN PRN Reason: Pain (mild 1-3) Diltiazem HCl (Cardizem Cd) 240 mg PO DAILY [facility] Last Admin: 09/09/18 09:34 Dose: 240 mg Fish Oil (Fish Oil) 1 gm PO DAILY [facility] Last Admin: 09/09/18 09:35 Dose: 1 gm Ceftriaxone Sodium/Dextrose 1 (gm/ Premix) 50 mls @ 100 mls/hr IV Q24H [facility] Last Admin: 09/09/18 14:31 Dose: 100 mls/hr Losartan Potassium (Cozaar) 50 mg PO DAILY [facility] Last Admin: 09/09/18 09:35 Dose: 50 mg Metoprolol Tartrate (Lopressor) 100 mg PO BID [facility] Last Admin: 09/09/18 21:13 Dose: 100 mg Multivitamins/Minerals/Vitamin C (Tab-A-Irene) 1 tab PO DAILY [facility] Last Admin: 09/09/18 09:35 Dose: 1 tab Ondansetron HCl (Zofran) 4 mg IVPUSH Q4H PRN PRN Reason: Nausea Last Admin: 09/09/18 12:29 Dose: 4 mg Rivaroxaban (Xarelto) 20 mg PO DAILY@1730 [facility] Last Admin: 09/09/18 18:02 Dose: 20 mg Sertraline HCl (Zoloft) 100 mg PO DAILY [facility] Last Admin: 09/09/18 09:35 Dose: 100 mg Sodium Chloride (Saline Flush) 10 ml FLUSH ASDIRECTED PRN PRN Reason: Keep Vein Open Last Admin: 09/07/18 11:41 Dose: 10 ml Sodium Chloride (Saline Flush) 2.5 ml FLUSH ASDIRECTED PRN PRN Reason: Keep Vein Open Last Admin: 09/07/18 11:42 Dose: 2.5 ml Vancomycin HCl (First-Vancomycin 25 Compounding Kit) 125 mg PO QID [facility] Last Admin: 09/09/18 23:15 Dose: 5 ml Discontinued Medications Albuterol/Ipratropium (Duoneb 3.0-0.5 Mg/3 Ml) 3 ml NEB ONETIME ONE Stop: 09/07/18 11:19 Last Admin: 09/07/18 11:47 Dose: 3 ml Furosemide (Lasix) 20 mg IVPUSH NOW ONE Stop: 09/07/18 11:19 Last Admin: 09/07/18 11:42 Dose: 20 mg Furosemide (Lasix) 20 mg IVPUSH ONETIME ONE Stop: 09/09/18 15:12 Last Admin: 09/09/18 15:39 Dose: 20 mg Sodium Chloride (Normal Saline) 500 mls @ 999 mls/hr IV STAT [facility] Last Admin: 09/07/18 11:39 Dose: 999 mls/hr Sodium Chloride (Normal Saline) 1,000 mls @ 50 mls/hr IV STAT ONE Stop: 09/08/18 08:49 Last Admin: 09/07/18 14:06 Dose: 50 mls/hr Sodium Chloride (Normal Saline) 1,000 mls @ 50 mls/hr IV ASDIRECTED [facility] Last Admin: 09/07/18 17:55 Dose: 50 mls/hr Vancomycin HCl (Vancomycin) 250 mg PO Q6H [facility] Last Admin: 09/08/18 03:41 Dose: 250 mg - Exam Quality Assessment: Reports: Supplemental Oxygen General: Reports: Alert, Oriented, Cooperative, No Acute Distress HEENT: Reports: Pupils Equal, Pupils Reactive, EOMI Neck: Reports: Supple, Trachea Midline Lungs: Reports: Clear to Auscultation, Normal Respiratory Effort Cardiovascular: Reports: Regular Rate, Regular Rhythm GI/Abdominal Exam: Normal Bowel Sounds, Soft, No Distention Back Exam: Reports: Normal Inspection (Kyphosis) Extremities: Normal Range of Motion (Age appropriate), Pedal Edema (Trace) Skin: Reports: Warm, Dry, Intact Neurological: Reports: No New Focal Deficit Psy/Mental Status: Reports: Alert, Normal Affect, Normal Mood
[2018-09-10] MEDS: Vancomycin 25 MG/ML Compounding Kit PO SCH ×2 (05:49→12:47)
[2018-09-10] MEDS: Multivitamin Tab PO SCH (08:58)
[2018-09-10] MEDS: Fish Oil/Omega-3 Fatty Acids 1 Gm Cap PO SCH (08:58)
[2018-09-10] MEDS: Sertraline 100 MG Tab PO SCH (08:59)
[2018-09-10] MEDS: Diltiazem 120 MG Cap.CD PO SCH (09:01)
[2018-09-10] MEDS: Metoprolol Tartrate 50 MG Tab PO SCH (11:25)
[2018-09-10] MEDS: Losartan 50 MG Tab PO SCH (11:25)
[2018-09-10 11:26] VITALS: BP 105/64
== END 2018-09-10 13:00 | disposition home or self-care (01) ==
LOC: MW.ED 10:44 → MW.MS 13:00
PROVIDERS: ADMIT Internal Medicine; ATTEND Internal Medicine
DX: A04.72 Enterocolitis due to Clostridium difficile, not specified as recurrent (principal); E86.0 Dehydration; I27.20 Pulmonary hypertension, unspecified; N39.0 Urinary tract infection, site not specified; I13.0 Hypertensive heart and chronic kidney disease with heart failure and stage 1 through stage 4 chronic kidney disease, or unspecified chronic kidney disease; N18.9 Chronic kidney disease, unspecified; I50.9 Heart failure, unspecified; I48.2 Chronic atrial fibrillation; I07.1 Rheumatic tricuspid insufficiency; I25.10 Atherosclerotic heart disease of native coronary artery without angina pectoris; E78.00 Pure hypercholesterolemia, unspecified; J44.9 Chronic obstructive pulmonary disease, unspecified; F32.9 Major depressive disorder, single episode, unspecified; E66.9 Obesity, unspecified; Z68.39 Body mass index [BMI] 39.0-39.9, adult; Z88.8 Allergy status to other drugs, medicaments and biological substances; Z79.01 Long term (current) use of anticoagulants; Z79.899 Other long term (current) drug therapy; Z87.891 Personal history of nicotine dependence; Z95.0 Presence of cardiac pacemaker
CPT/HCPCS: 36415; 71045; 80048; 80053; 81001; 83880; 84484; 85025; 85610; 87046; 87086; 87324; 87899; 93005; 96361; 96374; 99284; A9270; J0696; J1940; J2405; J7040; 96365; 96375; 96376; G0378; J7620-GY

== ENCOUNTER 2018-09-29 22:33 | Inpatient (IN) | payer MEDICARE, BC ==
[2018-09-29] MEDS ORDERED: Ondansetron 4 MG/2 ML SDV IVPUSH ONE (23:07)
--- NOTE | 2018-09-29 23:22 | EDM.PDOC ---
ED HPI GENERAL MEDICAL PROBLEM - General Chief Complaint: General Stated Complaint: PT HAS LOW BLOOD PRESSURE Time Seen by Provider: 09/29/18 22:41 Source of Information: Reports: Patient, Family History Limitations: Reports: No Limitations - History of Present Illness INITIAL COMMENTS - FREE TEXT/NARRATIVE: HISTORY AND PHYSICAL: History of present illness: Patient is a 88-year-old female presents to the ED today from the [employer] bus for concern of headache, increase in fatigue with abdominal pain and nausea, a fall, and lower blood pressure. Patient states her only complaint today is that she has a headache and her knees hurt. Patient states that she fell last night and since then has had knee pain and a headache and is unsure if she hit her head but states did not loose consciousness. Patients daughter who is at bedside states that today patient has also been complaining of upper abdominal pain with nausea and has not eaten much today. Daughter is also concerned because today patient required 3 people to transfer when usually she is able to transfer with one assist. Patient has a history of congestive heart failure s/p pacemaker due to aortic regurgitation, COPD on 2L NC at [place] continuously. Patient denies fever, chills, chest pain, shortness of breath, or cough. Denies neck stiff ness, change in vision, syncope, or near syncope. Denies vomiting, diarrhea, constipation, or dysuria. Has not noted any blood in urine or stool. Review of systems: As per history of present illness and below otherwise all systems reviewed and negative. Past medical history: As per history of present illness and as reviewed below otherwise noncontributory. Surgical history: As per history of present illness and as reviewed below otherwise noncontributory. Social history: See social history for further information Family history: As per history of present illness and as reviewed below otherwise noncontributory. Physical exam: General: Patient is alert, oriented, and in no acute distress. Patient laying comfortably on exam table but tired appearing. HEENT: Atraumatic, normocephalic, pupils equal and reactive bilaterally, negative for conjunctival pallor or scleral icterus, mucous membranes dry, TMs normal bilaterally, throat clear, neck supple, nontender, trachea midline. No drooling or trismus noted. No meningeal signs. No hot potato voice noted. Positive JVP. Lungs: Patient unable to take deep breaths. Exam limited. Otherwise, Clear to auscultation, breath sounds equal bilaterally, chest nontender. Heart: S1S2, regular rate and rhythm with systolic ejection murmur best heard at the left upper sternal border. Abdomen: Soft, nondistended. Moderate pain to palpation of the upper abdomen with guarding. Negative for masses or hepatosplenomegaly. Negative for costovertebral tenderness. Pelvis: Stable nontender. Genitourinary: see skin Rectal: Deferred. Skin: See extremities. Numerous lesions / rash noted of the perineal area along markings of brief. Along the external buttocks where brief lies, the skin is erythematous and irritated appearing. Extremities: Atraumatic, negative for cords or calf pain. Neurovascular unremarkable. 3+ pitting edema bilateral lower extremities the knees. There are some purple scattered bruises over the bilateral knees. Patient does have full range of motion of the knees without pain or difficulty. Neuro: Awake, alert, oriented. Cranial nerves II through XII unremarkable. Cerebellum unremarkable. Motor and sensory unremarkable throughout. Exam nonfocal. Notes: Dr. Barajas verbally involved in patient care. Dr. Salazar consulted on patient and will admit to inpatient. Voices understanding and is agreeable to plan of care. Denies any further questions or concerns at this time. Diagnostics: Daughter is requesting full workup for patients symptoms CBC, CMP, EKG, troponin, BNP, head CT, chest x-ray, abdominal pelvic CT without contrast, lipase, bilateral knee XR Therapeutics: Saline lock, Zofran, Calcium Cl, Sodium Bicarb, D50, Insulin Impression: Hyperkalemia Congestive Heart Failure Exacerbation Small Bowel Obstruction Headache Bilateral knee injury Fall risk Plan: 1. Admit to inpatient to Dr. Salazar. Definitive disposition and diagnosis as appropriate pending reevaluation and review of above. headache Pain Score (Numeric/FACES): 5 - Related Data Allergies Allergy/AdvReac Type Severity Reaction Status Date / Time Digitalis Glycosides Allergy Hives Verified 09/30/18 05:15 Home Meds: Home Meds Diltiazem [Cardizem CD] 240 mg PO DAILY 04/08/14 [History] Metoprolol Tartrate [Lopressor] 100 mg PO BID 04/08/14 [History] Multivits-Min/Iron/FA/Lutein [[employer] Women's Tab] 1 tab PO DAILY 04/08 [History] [place]-3/DHA/Epa/Fish Oil [[place]-3 Fish Oil 1,000 MG Sfgl] 1 tab PO DAILY [History] Potassium Chloride 20 mg PO DAILY 04/08/14 [History] Rivaroxaban [Xarelto] 20 mg PO DAILY 04/08/14 [History] Sertraline [Zoloft] 100 mg PO DAILY 04/08/14 [History] Zolpidem [Ambien] 5 mg PO BEDTIME PRN 04/08/14 [History] Furosemide 40 mg PO DAILY 09/07/18 [History] Losartan [Cozaar] 50 mg PO DAILY 09/07/18 [History] Nitroglycerin 1 tab PO TID PRN MDD 3 09/07/18 [History] Carbamide Peroxide [Debrox] 15 ml OT Q12HR 09/29/18 [History] Magnesium Hydroxide [Milk of Magnesia] 30 ml PO DAILY PRN 09/29/18 [History] Ondansetron [Zofran ODT] 4 mg PO Q6H PRN 09/29/18 [History] Polyethylene Glycol 3350 [Miralax] 17 gm PO DAILY PRN 09/29/18 [History] Past Medical History HEENT History: Reports: Hard of Hearing Cardiovascular History: Reports: Afib, CAD, Heart Failure, High Cholesterol, Hypertension, Pacemaker, Pulmonary Hypertension, Other (See Below) Other Cardiovascular History: Severe tricuspid regurgitation Respiratory History: Reports: COPD, SOB Gastrointestinal History: Reports: None Genitourinary History: Reports: Chronic Renal Insuffiency [employer] History: Reports: Musculoskeletal History: Reports: Back Pain, Chronic Neurological History: Reports: None Psychiatric History: Reports: Depression Endocrine/Metabolic History: Reports: Obesity/BMI 30+ Hematologic History: Reports: Anticoagulation Therapy Oncologic (Cancer) History: Reports: Colon Dermatologic History: Reports: None - Infectious Disease History Infectious Disease History: Reports: C-Difficile - Past Surgical History HEENT Surgical History: Reports: Other (See Below) Other HEENT Surgeries/Procedures: wear glasses Cardiovascular Surgical History: Reports: Cardiac Ablation, Pacer GI Surgical History: Reports: Hernia, Abdominal Social & Family History - Family History Family Medical History: Noncontributory - Tobacco Use Smoking Status *Q: Former Smoker Used Tobacco, but Quit: Yes Month/Year Tobacco Last Used: 1999 - Caffeine Use Caffeine Use: Reports: Coffee - Recreational Drug Use Recreational Drug Use: No - Living Situation & Occupation Occupation: Retired ED ROS GENERAL - Review of Systems Review Of Systems: ROS reveals no pertinent complaints other than HPI. ED EXAM, GENERAL - Physical Exam Exam: See Below (see dictation) Course - Vital Signs Last Recorded V/S: Last Vital Signs Temp 36.8 C 09/30/18 03:10 Pulse 75 09/30/18 03:10 Resp 18 09/30/18 03:10 BP 103/54 L 09/30/18 03:10 Pulse Ox 93 L 09/30/18 03:10 - Orders/Labs/Meds Orders: Active Orders 24 hr Category Date Time Status Cardiac Monitoring [RC] . DIRECTED Care 09/29/18 23:07 Active Medication Orders Acetaminophen (Tylenol) 650 mg PO Q6H PRN PRN Reason: Pain (mild 1-3) Diltiazem HCl (Cardizem Cd) 240 mg PO DAILY FAYE Furosemide (Lasix) 40 mg PO DAILY FAYE Losartan Potassium (Cozaar) 50 mg PO DAILY FAYE Metoprolol Tartrate (Lopressor) 100 mg PO BID FAYE Oxycodone HCl (Oxycodone) 5 mg PO Q4H PRN PRN Reason: Pain (moderate 4-6) Rivaroxaban (Xarelto) 20 mg PO WITHDINNER FAYE Sertraline HCl (Zoloft) 100 mg PO DAILY FAYE Sodium Chloride (Saline Flush) 10 ml FLUSH ASDIRECTED PRN PRN Reason: Keep Vein Open Sodium Chloride (Saline Flush) 2.5 ml FLUSH ASDIRECTED PRN PRN Reason: Keep Vein Open Labs: Laboratory Tests 09/29/18 09/29/18 09/29/18 Range/Units 23:27 23:27 23:27 WBC 15.56 H (4.0-11.0) K/uL RBC 4.17 L (4.30-5.90) M/uL Hgb 11.6 L (12.0-16.0) g/dL Hct 36.6 (36.0-46.0) % MCV 87.8 (80.0-98.0) fL MCH 27.8 (27.0-32.0) pg MCHC 31.7 (31.0-37.0) g/dL RDW Std Deviation 58.8 (28.0-62.0) fl RDW Coeff of Blaine 18 H (11.0-15.0) % Plt Count 184 (150-400) K/uL MPV 10.30 (7.40-12.00) fL Neut % (Auto) 86.6 H (48.0-80.0) % Lymph % (Auto) 5.1 L (16.0-40.0) % [place] % (Auto) 7.8 (0.0-15.0) % Eos % (Auto) 0.3 (0.0-7.0) % Baso % (Auto) 0.2 (0.0-1.5) % Neut # (Auto) 13.5 H (1.4-5.7) K/uL Lymph # (Auto) 0.8 (0.6-2.4) K/uL [place] # (Auto) 1.2 H (0.0-0.8) K/uL Eos # (Auto) 0.1 (0.0-0.7) K/uL Baso # (Auto) 0.0 (0.0-0.1) K/uL Nucleated RBC % 0.0 /100WBC Nucleated RBCs # 0 K/uL Sodium 132 L (136-145) mmol/L Potassium 7.0 H (3.5-5.1) mmol/L Chloride 101 (98-107) mmol/L Carbon Dioxide 19.8 L (21.0-32.0) mmol/L BUN 53 H (7.0-18.0) mg/dL Creatinine 2.4 H (0.6-1.0) mg/dL Est Cr Clr Drug Dosing 13.31 mL/min Estimated GFR (MDRD) 19.1 ml/min Glucose 93 (74-106) mg/dL Calcium 9.1 (8.5-10.1) mg/dL Total Bilirubin 0.4 (0.2-1.0) mg/dL AST 53 H (15-37) IU/L ALT 17 (14-63) IU/L Alkaline Phosphatase 142 H (46-116) U/L Troponin I (0.000-0.056) ng/mL B-Natriuretic Peptide 770 H (<100) PG/ML Total Protein 8.5 H (6.4-8.2) g/dL Albumin 2.0 L (3.4-5.0) g/dL Globulin 6.5 H (2.6-4.0) g/dL Albumin/Globulin Ratio 0.3 L (0.9-1.6) Lipase (73-393) U/L 09/29/18 Range/Units 23:27 WBC (4.0-11.0) K/uL RBC (4.30-5.90) M/uL Hgb (12.0-16.0) g/dL Hct (36.0-46.0) % MCV (80.0-98.0) fL MCH (27.0-32.0) pg MCHC (31.0-37.0) g/dL RDW Std Deviation (28.0-62.0) fl RDW Coeff of Blaine (11.0-15.0) % Plt Count (150-400) K/uL MPV (7.40-12.00) fL Neut % (Auto) (48.0-80.0) % Lymph % (Auto) (16.0-40.0) % [place] % (Auto) (0.0-15.0) % Eos % (Auto) (0.0-7.0) % Baso % (Auto) (0.0-1.5) % Neut # (Auto) (1.4-5.7) K/uL Lymph # (Auto) (0.6-2.4) K/uL [place] # (Auto) (0.0-0.8) K/uL Eos # (Auto) (0.0-0.7) K/uL Baso # (Auto) (0.0-0.1) K/uL Nucleated RBC % /100WBC Nucleated RBCs # K/uL Sodium (136-145) mmol/L Potassium (3.5-5.1) mmol/L Chloride (98-107) mmol/L Carbon Dioxide (21.0-32.0) mmol/L BUN (7.0-18.0) mg/dL Creatinine (0.6-1.0) mg/dL Est Cr Clr Drug Dosing mL/min Estimated GFR (MDRD) ml/min Glucose (74-106) mg/dL Calcium (8.5-10.1) mg/dL Total Bilirubin (0.2-1.0) mg/dL AST (15-37) IU/L ALT (14-63) IU/L Alkaline Phosphatase (46-116) U/L Troponin I < 0.050 (0.000-0.056) ng/mL B-Natriuretic Peptide (<100) PG/ML Total Protein (6.4-8.2) g/dL Albumin (3.4-5.0) g/dL Globulin (2.6-4.0) g/dL Albumin/Globulin Ratio (0.9-1.6) Lipase 89 (73-393) U/L Meds: Medications Generic Name Dose Route Start Last Admin Trade Name Freq PRN Reason Stop Dose Admin Acetaminophen 650 mg 09/30/18 02:07 Tylenol PO Q6H PRN Pain (mild 1-3) Diltiazem HCl 240 mg 09/30/18 09:00 Cardizem Cd PO DAILY FAYE Furosemide 40 mg 09/30/18 09:00 Lasix PO DAILY [facility] Losartan Potassium 50 mg 09/30/18 09:00 Cozaar PO DAILY [facility] Metoprolol Tartrate 100 mg 09/30/18 09:00 Lopressor PO BID FAYE Oxycodone HCl 5 mg 09/30/18 02:07 Oxycodone PO Q4H PRN Pain (moderate 4-6) Rivaroxaban 20 mg 09/30/18 17:30 Xarelto PO WITHDINNER [facility] Sertraline HCl 100 mg 09/30/18 09:00 Zoloft PO DAILY FAYE Sodium Chloride 10 ml 09/30/18 02:06 Saline Flush FLUSH ASDIRECTED PRN Keep Vein Open Sodium Chloride 2.5 ml 09/30/18 02:06 Saline Flush FLUSH ASDIRECTED PRN Keep Vein Open Discontinued Medications Generic Name Dose Route Start Last Admin Trade Name Freq PRN Reason Stop Dose Admin Calcium Chloride 1 gm 09/30/18 00:07 09/30/18 01:00 Calcium Chloride 10% IV 09/30/18 00:08 1 gm ONETIME ONE Administration Dextrose/Water 50 ml 09/30/18 00:07 09/30/18 01:12 Dextrose 50% In Water IVPUSH 09/30/18 00:08 50 ml ONETIME ONE Administration Dextrose/Water 50 ml 09/30/18 03:35 09/30/18 04:07 Dextrose 50% In Water IVPUSH 09/30/18 03:36 50 ml ONETIME ONE Administration Furosemide 20 mg 09/30/18 08:00 Lasix IVPUSH BIDDIURETIC FAYE Furosemide 20 mg 09/30/18 09:43 09/30/18 09:48 Lasix IVPUSH 09/30/18 09:44 20 mg NOW ONE Administration Sodium Chloride 250 mls @ 999 mls/hr 09/30/18 01:24 09/30/18 01:27 Normal Saline IV 09/30/18 01:39 999 mls/hr .BOLUS ONE Administration Insulin Human Regular 10 unit 09/30/18 00:07 09/30/18 01:14 Novolin R IVPUSH 09/30/18 00:08 10 units ONETIME ONE Administration Insulin Human Regular 10 unit 09/30/18 03:35 09/30/18 04:07 Novolin R IVPUSH 09/30/18 03:36 10 units ONETIME ONE Administration Protocol Morphine Sulfate 1 mg 09/30/18 09:41 09/30/18 09:47 Morphine IVPUSH 09/30/18 09:42 1 mg NOW STA Administration Ondansetron HCl 4 mg 09/29/18 23:07 09/30/18 00:15 Zofran IVPUSH 09/29/18 23:08 4 mg ONETIME ONE Administration Sodium Bicarbonate 50 meq 09/30/18 00:07 09/30/18 01:08 Sodium Bicarbonate 8.4% IVPUSH 09/30/18 00:08 50 meq ONETIME ONE Administration Sodium Bicarbonate Confirm 09/30/18 00:54 09/30/18 01:00 Sodium Bicarbonate 8.4% Administered 09/30/18 00:55 Not Given Dose 50 meq .ROUTE .STK-MED ONE Sodium Polystyrene Sulfonate 30 gm 09/30/18 02:05 09/30/18 04:06 Kayexalate PO 09/30/18 02:06 Not Given ONETIME ONE Departure - Departure Time of Disposition: 00:31 Disposition: Admitted As Inpatient 68 Clinical Impression: Hyperkalemia, Small bowel obstruction Congestive heart failure (CHF) Qualifiers: Heart failure type: combined systolic and diastolic Heart failure chronicity: unspecified Qualified Code(s): I50.40 - Unspecified combined systolic ( congestive) and diastolic (congestive) heart failure Hypotension Qualifiers: Hypotension type: other hypotension type Qualified Code(s): I95.89 - Other hypotension - Discharge Information - My Orders Last 24 Hours: My Active Orders 09/29/18 23:07 Cardiac Monitoring [RC] . DIRECTED - Assessment/Plan Last 24 Hours: My Active Orders 09/29/18 23:07 Cardiac Monitoring [RC] . DIRECTED
[2018-09-30] MEDS ORDERED: Calcium Chloride 10% 1 GM/10 ML Syringe IV ONE ×2 (00:07→13:17)
[2018-09-30] MEDS ORDERED: Sodium Bicarbonate 8.4% 50 MEQ/50 ML SDV IVPUSH ONE (00:07)
[2018-09-30] MEDS ORDERED: Insulin Regular, Human 100 Units/ML 10 ML Vial IVPUSH ONE ×2 (00:07→03:35)
[2018-09-30] MEDS ORDERED: 50% Dextrose in Water 50 ML Syringe IVPUSH ONE ×2 (00:07→03:35)
--- NOTE | 2018-09-30 00:26 | CR ---
Clinical INDICATION: Weakness. Loss of appetite. Pacemaker pain. Low blood pressure. COMPARISON: 09/07/2018. FINDINGS: There is a pacemaker device on the left side of the chest with a right ventricular lead in place. There is a small to moderate left pleural effusion that has developed since the previous exam. There is a suture chain at the right lung base. The lungs are otherwise essentially clear. The pulmonary vasculature is normal. The bony thorax appears intact. IMPRESSION: Moderate cardiomegaly. Small to moderate left pleural effusion. Pacemaker. Dictated by Pravin Vega MD @ Sep 30 2018 12:21AM Signed by Dr. Pravin Vega @ Sep 30 2018 12:24AM
--- NOTE | 2018-09-30 00:47 | CR ---
INDICATION: pain BILATERAL KNEES INDICATION: Pain. COMPARISON: None. FINDINGS/IMPRESSION: No acute fracture identified. Minimal lateral subluxation of the patellae bilaterally. Otherwise unremarkable bony alignment. Very mild patellofemoral joint DJD changes bilaterally. No definite joint effusions. Mild diffuse osteopenia. Dictated by Cuauhtemoc Lainez MD @ 09/30/2018 12:43:12 AM Dictated by: Cuauhtemoc Lainez MD @ 09/30/2018 00:45:31 (Electronically Signed)
--- NOTE | 2018-09-30 00:47 | CR ---
BILATERAL KNEES INDICATION: Pain. COMPARISON: None. FINDINGS/IMPRESSION: No acute fracture identified. Minimal lateral subluxation of the patellae bilaterally. Otherwise unremarkable bony alignment. Very mild patellofemoral joint DJD changes bilaterally. No definite joint effusions. Mild diffuse osteopenia. Dictated by Cuauhtemoc aLinez MD @ 09/30/2018 12:43:12 AM Dictated by: Cuauhtemoc Lainez MD @ 09/30/2018 00:45:11 (Electronically Signed)
[2018-09-30] MEDS ORDERED: Sodium Bicarbonate 8.4% 50 MEQ/50 ML Syringe ONE (00:54)
--- NOTE | 2018-09-30 01:02 | CT ---
INDICATION: Weakness. Headache. Nausea TECHNIQUE: CT head without contrast. COMPARISON: None available FINDINGS: There is age-related cortical atrophy with mild proportionate ventriculomegaly. There is no mass effect or midline shift. White matter hypodensities are suggestive of chronic small vessel ischemic changes. 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 There is no loss of murguia-white differentiation. There is no evidence of an acute intracranial hemorrhage. No acute calvarial fracture is seen. There is diffuse osteopenia with inhomogeneous calvarial mineralization. The visualized paranasal sinuses and mastoid air cells are clear. Post cataract surgery changes are seen. IMPRESSION: No evidence of an acute intracranial hemorrhage, mass effect or loss of murguia-white differentiation. Age-related atrophy and chronic ischemic changes. Dictated by Sandip Eisenberg MD @ 09/30/2018 1:00:40 AM Please note that all CT scans at this facility use dose modulation, iterative reconstruction, and/or weight-based dosing when appropriate to reduce radiation dose to as low as reasonably achievable. Dictated by: Sandip Eisenberg MD @ 09/30/2018 01:00:45 (Electronically Signed)
--- NOTE | 2018-09-30 01:19 | CT ---
Clinical indication : Weakness, headache, nausea, decreased appetite, pacemaker pain and low blood pressure. TECHNIQUE: Axial noncontrast CT cuts performed above diaphragm to the below the ischial tuberosities. FINDINGS: There is a small amount of free fluid within the abdomen adjacent to the liver and within the pelvis. The liver is small and likely cirrhotic. There are a few punctate calcifications within spleen consistent with benign granulomatous disease. The other small gallstones within the gallbladder. There is a large piece of mesh in place for repair of a ventral hernia. There is moderate colonic diverticulosis without diverticulitis. The small bowel appears normal. There are no enlarged retroperitoneal or mesenteric lymph nodes. The uterus and urinary bladder appear normal. There are no enlarged iliac lymph nodes. The uterus appears normal. The urinary bladder is almost completely empty. There are no enlarged iliac or inguinal nodes. There is a moderate cardiomegaly. There are pacemaker leads within. There is a small left pleural effusion. There is patchy atelectasis at the lung bases. IMPRESSION: 1. There is a mid small bowel obstruction. 2. Cholelithiasis. 3. The liver is likely cirrhotic. 4. Moderate colonic diverticulosis without diverticulitis. 5. Moderate cardiomegaly. Please note that all CT scans at this facility use dose modulation, iterative reconstruction, and/or weight-based dosing when appropriate to reduce radiation dose to as low as reasonably achievable. Dictated by Pravin Vega MD @ Sep 30 2018 1:08AM Signed by Dr. Pravin Vega @ Sep 30 2018 1:17AM
[2018-09-30] MEDS ORDERED: Sodium Chloride 0.9% 250 ML IV ONE (01:24)
[2018-09-30] MEDS ORDERED: Sodium Polystyrene Sulfonate 15 GM/60 ML Susp 60 ML Bot PO ONE (02:05)
[2018-09-30] MEDS ORDERED: Sodium Chloride 0.9% 2.5 ML Syringe FLUSH PRN (02:06)
[2018-09-30] MEDS ORDERED: Sodium Chloride 0.9% 10 ML Syringe FLUSH PRN (02:06)
[2018-09-30] MEDS ORDERED: Acetaminophen 325 MG Tab PO PRN (02:07)
[2018-09-30] MEDS ORDERED: oxyCODONE 5 MG Tab PO PRN (02:07)
--- NOTE | 2018-09-30 06:30 | PCM.HP.2 ---
H&P History of Present Illness - General Date of Service: 09/30/18 Admit Problem/Dx: Admission Diagnosis/Problem Admission Diagnosis/Problem Congestive heart failure Source of Information: Old Records History Limitations: Reports: Altered Mental Status - History of Present Illness Initial Comments - Free Text/Narative: The patient is an 88-year-old lady who is known to me from previous visits had presented to the emergency department with headache, fatigue, a fall and low blood pressure. The patient is a resident of [facility]. The patient today is minimally alert and is not following commands. The patient therefore is not able to participate in any meaningful way with her history and physical at this time and information has been obtained from her previous charting. Family members are not available at this time. Onset of Symptoms: Reports: Unknown/Unsure Severity: Mild Improves with: Reports: None Worsens with: Reports: None headache Pain Score (Numeric/FACES): 5 - Related Data Allergies/Adverse Reactions: Allergies Allergy/AdvReac Type Severity Reaction Status Date / Time Digitalis Glycosides Allergy Hives Verified 09/30/18 05:15 Home Medications: Home Meds Diltiazem [Cardizem CD] 240 mg PO DAILY 04/08/14 [History] Metoprolol Tartrate [Lopressor] 100 mg PO BID 04/08/14 [History] Multivits-Min/Iron/FA/Lutein [[employer] Ultimate Women's Tab] 1 tab PO DAILY 04/08 [History] [place]-3/DHA/Epa/Fish Oil [[place]-3 Fish Oil 1,000 MG Sfgl] 1 tab PO DAILY [History] Potassium Chloride 20 mg PO DAILY 04/08/14 [History] Rivaroxaban [Xarelto] 20 mg PO DAILY 04/08/14 [History] Sertraline [Zoloft] 100 mg PO DAILY 04/08/14 [History] Zolpidem [Ambien] 5 mg PO BEDTIME PRN 04/08/14 [History] Furosemide 40 mg PO DAILY 09/07/18 [History] Losartan [Cozaar] 50 mg PO DAILY 09/07/18 [History] Nitroglycerin 1 tab PO TID PRN MDD 3 09/07/18 [History] Carbamide Peroxide [Debrox] 15 ml OT Q12HR 09/29/18 [History] Magnesium Hydroxide [Milk of Magnesia] 30 ml PO DAILY PRN 09/29/18 [History] Ondansetron [Zofran ODT] 4 mg PO Q6H PRN 09/29/18 [History] Polyethylene Glycol 3350 [Miralax] 17 gm PO DAILY PRN 09/29/18 [History] Past Medical History HEENT History: Reports: Hard of Hearing Cardiovascular History: Reports: Afib, CAD, Heart Failure, High Cholesterol, Hypertension, Pacemaker, Pulmonary Hypertension, Other (See Below) Other Cardiovascular History: Severe tricuspid regurgitation Respiratory History: Reports: COPD, SOB Gastrointestinal History: Reports: None Genitourinary History: Reports: Chronic Renal Insuffiency DESIGN SPECIALIST History: Reports: Musculoskeletal History: Reports: Back Pain, Chronic Neurological History: Reports: None Psychiatric History: Reports: Depression Endocrine/Metabolic History: Reports: Obesity/BMI 30+ Hematologic History: Reports: Anticoagulation Therapy Oncologic (Cancer) History: Reports: Colon Dermatologic History: Reports: None - Infectious Disease History Infectious Disease History: Reports: C-Difficile - Past Surgical History HEENT Surgical History: Reports: Other (See Below) Other HEENT Surgeries/Procedures: wear glasses Cardiovascular Surgical History: Reports: Cardiac Ablation, Pacer GI Surgical History: Reports: Hernia, Abdominal Social & Family History - Family History Family Medical History: Noncontributory - Tobacco Use Smoking Status *Q: Former Smoker Used Tobacco, but Quit: Yes Month/Year Tobacco Last Used: unknown Second Hand Smoke Exposure: No - Caffeine Use Caffeine Use: Reports: Coffee - Alcohol Use Alcohol Use History: No - Recreational Drug Use Recreational Drug Use: No - Living Situation & Occupation Occupation: Retired H&P Review of Systems - Review of Systems: Review Of Systems: Unable To Obtain Exam - Exam Exam: See Below - Vital Signs Vital Signs: Last Vital Signs Temp 36.8 C 09/30/18 03:10 Pulse 75 09/30/18 03:10 Resp 18 09/30/18 03:10 BP 103/54 L 09/30/18 03:10 Pulse Ox 93 L 09/30/18 03:10 Weight: 93.576 kg - Exam Quality Assessment: Supplemental Oxygen General: Other (Not following commands). No: Alert, Oriented HEENT: Conjunctiva Clear. No: Mucosa Moist & [place] (Dry) Neck: Supple, Trachea Midline Lungs: Decreased Breath Sounds, Crackles, Rales Cardiovascular: Regular Rhythm, Irregular Rhythm GI/Abdominal Exam: Normal Bowel Sounds, Soft (No reaction to palpation), No Distention Back Exam: No: Normal Inspection (Kyphosis) Extremities: Pedal Edema (+3 pitting) Skin: Warm, Dry Neurological: No: Cranial Nerves Intact (Unable to adequately assess) Neuro Extensive - Mental Status: No: Alert Psychiatric: No: Alert, Normal Affect, Normal Mood - Patient Data Lab Results Last 24 hrs: Laboratory Results - last 24 hr 09/29/18 09/29/18 09/29/18 Range/Units 23:27 23:27 23:27 WBC 15.56 H (4.0-11.0) K/uL RBC 4.17 L (4.30-5.90) M/uL Hgb 11.6 L (12.0-16.0) g/dL Hct 36.6 (36.0-46.0) % MCV 87.8 (80.0-98.0) fL MCH 27.8 (27.0-32.0) pg MCHC 31.7 (31.0-37.0) g/dL RDW Std Deviation 58.8 (28.0-62.0) fl RDW Coeff of [place] 18 H (11.0-15.0) % Plt Count 184 (150-400) K/uL MPV 10.30 (7.40-12.00) fL Neut % (Auto) 86.6 H (48.0-80.0) % Lymph % (Auto) 5.1 L (16.0-40.0) % [place] % (Auto) 7.8 (0.0-15.0) % Eos % (Auto) 0.3 (0.0-7.0) % Baso % (Auto) 0.2 (0.0-1.5) % Neut # (Auto) 13.5 H (1.4-5.7) K/uL Lymph # (Auto) 0.8 (0.6-2.4) K/uL [place] # (Auto) 1.2 H (0.0-0.8) K/uL Eos # (Auto) 0.1 (0.0-0.7) K/uL Baso # (Auto) 0.0 (0.0-0.1) K/uL Nucleated RBC % 0.0 /100WBC Nucleated RBCs # 0 K/uL Sodium 132 L (136-145) mmol/L Potassium 7.0 H (3.5-5.1) mmol/L Chloride 101 (98-107) mmol/L Carbon Dioxide 19.8 L (21.0-32.0) mmol/L BUN 53 H (7.0-18.0) mg/dL Creatinine 2.4 H (0.6-1.0) mg/dL Est Cr Clr Drug Dosing 13.31 mL/min Estimated GFR (MDRD) 19.1 ml/min Glucose 93 (74-106) mg/dL Calcium 9.1 (8.5-10.1) mg/dL Total Bilirubin 0.4 (0.2-1.0) mg/dL AST 53 H (15-37) IU/L ALT 17 (14-63) IU/L Alkaline Phosphatase 142 H (46-116) U/L Troponin I (0.000-0.056) ng/mL B-Natriuretic Peptide 770 H (<100) PG/ML Total Protein 8.5 H (6.4-8.2) g/dL Albumin 2.0 L (3.4-5.0) g/dL Globulin 6.5 H (2.6-4.0) g/dL Albumin/Globulin Ratio 0.3 L (0.9-1.6) Lipase (73-393) U/L Urine Color Urine Appearance Urine pH (5.0-8.0) Ur Specific [place] (1.001-1.035) Urine Protein (NEGATIVE) mg/dL Urine Glucose (UA) (NEGATIVE) mg/dL Urine Ketones (NEGATIVE) mg/dL Urine Occult Blood (NEGATIVE) Urine Nitrite (NEGATIVE) Urine Bilirubin (NEGATIVE) Urine Ictotest Urine Urobilinogen (<2.0) EU/dL Ur Leukocyte Esterase (NEGATIVE) Urine RBC (0-2/HPF) Urine WBC (0-5/HPF) Ur Epithelial Cells (NONE-FEW) Calcium Oxalate Crystal (NEGATIVE) Amorphous Sediment (NEGATIVE) Urine Bacteria (NEGATIVE) Urine Mucus (NONE-MOD) 09/29/18 09/30/18 09/30/18 Range/Units 23:27 00:25 01:28 WBC (4.0-11.0) K/uL RBC (4.30-5.90) M/uL Hgb (12.0-16.0) g/dL Hct (36.0-46.0) % MCV (80.0-98.0) fL MCH (27.0-32.0) pg MCHC (31.0-37.0) g/dL RDW Std Deviation (28.0-62.0) fl RDW Coeff of [place] (11.0-15.0) % Plt Count (150-400) K/uL MPV (7.40-12.00) fL Neut % (Auto) (48.0-80.0) % Lymph % (Auto) (16.0-40.0) % [place] % (Auto) (0.0-15.0) % Eos % (Auto) (0.0-7.0) % Baso % (Auto) (0.0-1.5) % Neut # (Auto) (1.4-5.7) K/uL Lymph # (Auto) (0.6-2.4) K/uL [place] # (Auto) (0.0-0.8) K/uL Eos # (Auto) (0.0-0.7) K/uL Baso # (Auto) (0.0-0.1) K/uL Nucleated RBC % /100WBC Nucleated RBCs # K/uL Sodium (136-145) mmol/L Potassium 6.7 H (3.5-5.1) mmol/L Chloride (98-107) mmol/L Carbon Dioxide (21.0-32.0) mmol/L BUN (7.0-18.0) mg/dL Creatinine (0.6-1.0) mg/dL Est Cr Clr Drug Dosing mL/min Estimated GFR (MDRD) ml/min Glucose (74-106) mg/dL Calcium (8.5-10.1) mg/dL Total Bilirubin (0.2-1.0) mg/dL AST (15-37) IU/L ALT (14-63) IU/L Alkaline Phosphatase (46-116) U/L Troponin I < 0.050 (0.000-0.056) ng/mL B-Natriuretic Peptide (<100) PG/ML Total Protein (6.4-8.2) g/dL Albumin (3.4-5.0) g/dL Globulin (2.6-4.0) g/dL Albumin/Globulin Ratio (0.9-1.6) Lipase 89 (73-393) U/L Urine Color YELLOW Urine Appearance CLOUDY Urine pH 5.0 (5.0-8.0) Ur Specific [place] >= 1.030 (1.001-1.035) Urine Protein TRACE H (NEGATIVE) mg/dL Urine Glucose (UA) NEGATIVE (NEGATIVE) mg/dL Urine Ketones TRACE H (NEGATIVE) mg/dL Urine Occult Blood NEGATIVE (NEGATIVE) Urine Nitrite NEGATIVE (NEGATIVE) Urine Bilirubin SMALL H (NEGATIVE) Urine Ictotest POSITIVE Urine Urobilinogen 0.2 (<2.0) EU/dL Ur Leukocyte Esterase NEGATIVE (NEGATIVE) Urine RBC 0-2 (0-2/HPF) Urine WBC 0-3 (0-5/HPF) Ur Epithelial Cells OCCASIONAL (NONE-FEW) Calcium Oxalate Crystal RARE (NEGATIVE) Amorphous Sediment LIGHT (NEGATIVE) Urine Bacteria 1+ H (NEGATIVE) Urine Mucus LIGHT (NONE-MOD) Result Diagrams: 09/30/18 06:14 09/30/18 06:14 - Problem List (1) Hyperkalemia SNOMED Code(s): 16816236 ICD Code: E87.5 - HYPERKALEMIA Status: Acute Priority: High Current Visit: Yes Problem Details: Severe (2) Hypotension SNOMED Code(s): 96829615 ICD Code: I95.9 - HYPOTENSION, UNSPECIFIED Status: Acute Priority: High Current Visit: Yes Qualifiers: Hypotension type: other hypotension type Qualified Code(s): I95.89 - Other hypotension (3) Congestive heart failure (CHF) SNOMED Code(s): 89940783 ICD Code: I50.9 - HEART FAILURE, UNSPECIFIED Status: Chronic Priority: High Current Visit: Yes Qualifiers: Heart failure type: combined systolic and diastolic Heart failure chronicity: unspecified Qualified Code(s): 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 (4) Afib SNOMED Code(s): 44698643 ICD Code: I48.91 - UNSPECIFIED ATRIAL FIBRILLATION Status: Chronic Priority: High Current Visit: Yes Qualifiers: Atrial fibrillation type: chronic Qualified Code(s): I48.2 - Chronic atrial fibrillation (5) Pacemaker SNOMED Code(s): 996472693 ICD Code: Z95.0 - PRESENCE OF CARDIAC PACEMAKER Status: Chronic Current Visit: No Problem List Initiated/Reviewed/Updated: Yes Orders Last 24hrs: Active Orders 24 hr Category Date Time Status Admission Status [Patient Status] [ADT] Stat ADT 09/30/18 00:22 Active Bedrest [RC] ASDIRECTED Care 09/30/18 02:06 Active Cardiac Monitoring [RC] . DIRECTED Care 09/29/18 23:07 Active Daily Weight [Height and Weight] [RC] DAILY Care 09/30/18 02:27 Active EKG Documentation Completion [RC] STAT Care 09/29/18 22:55 Active Pulse Oximetry [RC] ASDIRECTED Care 09/29/18 23:07 Active Telemetry Monitoring [Cardiac Monitoring] [RC] Q8H Care 09/30/18 02:05 Active Fluid Restriction [DIET] Diet 09/30/18 Breakfast Active Heart Healthy Diet [DIET] Diet 09/30/18 Breakfast Active BMP [BASIC METABOLIC PANEL,BMP] [CHEM] Routine Lab 09/30/18 06:14 Received CBC WITH AUTO DIFF [HEME] Routine Lab 09/30/18 06:14 Received Acetaminophen [Tylenol] Med 09/30/18 02:07 Active 650 mg PO Q6H PRN Furosemide [Lasix] Med 09/30/18 08:00 Active 20 mg IVPUSH BIDDIURETIC Sodium Chloride 0.9% [Saline Flush] Med 09/30/18 02:06 Active 10 ml FLUSH ASDIRECTED PRN Sodium Chloride 0.9% [Saline Flush] Med 09/30/18 02:06 Active 2.5 ml FLUSH ASDIRECTED PRN oxyCODONE Med 09/30/18 02:07 Active 5 mg PO Q4H PRN Saline Lock Insert [OM.PC] Routine Oth 09/30/18 02:06 Ordered Medication Orders Acetaminophen (Tylenol) 650 mg PO Q6H PRN PRN Reason: Pain (mild 1-3) Furosemide (Lasix) 20 mg IVPUSH BIDDIURETIC FAYE Oxycodone HCl (Oxycodone) 5 mg PO Q4H PRN PRN Reason: Pain (moderate 4-6) Sodium Chloride (Saline Flush) 10 ml FLUSH ASDIRECTED PRN PRN Reason: Keep Vein Open Sodium Chloride (Saline Flush) 2.5 ml FLUSH ASDIRECTED PRN PRN Reason: Keep Vein Open Assessment/Plan Comment:: The patient is a 88-year-old lady who had presented to the emergency department and was found to have severe hyperkalemia. The patient initially had a potassium of 7 mmol per liter and this had improved to 5.9 mmol per liter. The patient was stabilized in the emergency department with D50, NovoLog insulin along with calcium gluconate. Kayexalate had been ordered with the patient had been unable to take this orally secondary to lethargy. The patient had been given an additional dose of D50 along with 10 units of NovoLog insulin IV. The patient will be kept on telemetry secondary to hyperkalemia. She is also to have fluid restriction secondary to the congestive heart failure. The patient will be advanced to a regular, heart healthy diet once she is more alert. The patient initially had blood pressure of 71/40 mmHg and this is improved. I'm concerned that the patient being treated for CHF along with third spacing with regards to her pedal edema would worsen her renal function. I've ordered repeat laboratory studies. I suspect that the patient's overall prognosis is poor at this point. Will discuss with family members when available. - Mortality Measure Prognosis:: Poor
[2018-09-30] MEDS ORDERED: Furosemide 20 MG/2 ML VIAL IVPUSH SCH (08:00)
[2018-09-30] MEDS ORDERED: Sertraline 100 MG Tab PO SCH (09:00)
[2018-09-30] MEDS ORDERED: Furosemide 40 MG Tab PO SCH (09:00)
[2018-09-30] MEDS ORDERED: Losartan 50 MG Tab PO SCH (09:00)
[2018-09-30] MEDS ORDERED: Diltiazem 120 MG Cap.CD PO SCH (09:00)
[2018-09-30] MEDS ORDERED: Metoprolol Tartrate 50 MG Tab PO SCH (09:00)
[2018-09-30] MEDS ORDERED: Morphine 2 MG/ML Syringe IVPUSH STA (09:41)
[2018-09-30] MEDS ORDERED: Furosemide 40 MG/4 ML VIAL IVPUSH ONE (09:43)
[2018-09-30 10:33] VITALS: BP 95/51
[2018-09-30] MEDS ORDERED: Morphine 2 MG/ML Syringe IVPUSH PRN (10:42)
[2018-09-30] MEDS ORDERED: Scopolamine 1.5 MG Transdermal Patch TRDERM PRN (10:50)
[2018-09-30] MEDS ORDERED: LORazepam 2 MG/ML SDV IVPUSH PRN (11:50)
[2018-09-30] MEDS ORDERED: Acetaminophen 650 MG Supp RECTAL PRN (11:51)
[2018-09-30] MEDS ORDERED: Morphine 4 MG/ML Syringe IVPUSH PRN (11:53)
[2018-09-30] MEDS ORDERED: Morphine 4 MG/ML Syringe IVPUSH ONE (11:55)
--- NOTE | 2018-09-30 12:01 | PCM.SN ---
<Zoie Brooks M - Last Filed: 09/30/18 11:57> - Free Text/Narrative Note: Patient's family to nursing window requesting medication for patient as she is very restless. I spoke wit Dr Salazar regarding patient family requests. I spoke with family at bedside and they are wanting Edith to be comfortable. We discussed comfort measures and they wish to provide this understanding as we make her more comfortable this may lead to continued respiratory depression. They understand and would like pain management and medication to help with breathing. I called Dr Salazar and talked to him about family requesting comfort measures. I will start comfort measures now. Will give Morphine 4 mg IV stat to help with discomfort now. <Dakota Salazar M - Last Filed: 09/30/18 13:32> - Free Text/Narrative Note: I have visited the patient as well and I have discussed the case with Vicenta Brooks and agree with the concept of palliative care. Morphine has been increased. She also has a scopolamine patch in place. The patient can be expected to continue with palliative care at [facility] tomorrow if necessary.
[2018-09-30] MEDS ORDERED: Hyoscyamine 0.125 MG Tab.SL SL PRN (15:24)
[2018-09-30] MEDS ORDERED: Rivaroxaban 10 MG Tab PO SCH (17:30)
--- NOTE | 2018-09-30 17:48 | PCM.DCSUM1 ---
Discharge Summary - Hospital Course Diagnosis: Stroke: No - Discharge Data Discharge Date: 09/30/18 Discharge Disposition: 20 Preliminary Cause of *Q: Multi System Organ Failure Condition: - Discharge Diagnosis/Problem(s) (1) Hyperkalemia SNOMED Code(s): 27049010 ICD Code: E87.5 - HYPERKALEMIA Status: Acute Priority: High Current Visit: Yes Problem Details: Severe (2) Hypotension SNOMED Code(s): 24830718 ICD Code: I95.9 - HYPOTENSION, UNSPECIFIED Status: Acute Priority: High Current Visit: Yes Qualifiers: Hypotension type: other hypotension type Qualified Code(s): I95.89 - Other hypotension (3) Congestive heart failure (CHF) SNOMED Code(s): 15507778 ICD Code: I50.9 - HEART FAILURE, UNSPECIFIED Status: Chronic Priority: High Current Visit: Yes Qualifiers: Heart failure type: combined systolic and diastolic Heart failure chronicity: unspecified Qualified Code(s): 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 (4) Afib SNOMED Code(s): 65693562 ICD Code: I48.91 - UNSPECIFIED ATRIAL FIBRILLATION Status: Chronic Priority: High Current Visit: Yes Qualifiers: Atrial fibrillation type: chronic Qualified Code(s): I48.2 - Chronic atrial fibrillation (5) Pacemaker SNOMED Code(s): 828337414 ICD Code: Z95.0 - PRESENCE OF CARDIAC PACEMAKER Status: Chronic Current Visit: No - Patient Summary/Data Consults: Consultations 09/30/18 13:42 Consult to Hospice [CONS] Routine Hospital Course: The patient is an 88-year-old lady who had been admitted to acute hospitalization today out of concern for hyperkalemia and worsening congestive heart failure. The patient's hyperkalemia had been stabilized in the emergency department with calcium gluconate along with D50 and IV insulin. The patient was altered and lethargic and Kayexalate was unable to be given. The patient was admitted and kept on telemetry. The patient had a second treatment of D 50 with IV insulin 10 units to help normalize the patient's potassium. In spite of oxygen therapy, Lasix the patient had continued to decline rapidly. The patient had required intensive oxygen therapy and she had rapidly desatted into the 70s to 80%. A chest x-ray had indicated moderate cardiomegaly without evidence of pneumonia. The patient also was unable to clear her breathing with weak cough. The patient had been referred to hospice care. A long discussion was held with the family. The patient also had continued to decline and palliative care measures were instituted. The patient was noted to be comfortable and she quietly with family members in the room. The patient was pronounced at [id number] 30, 2018. - Discharge Plan *PRESCRIPTION DRUG MONITORING PROGRAM REVIEWED*: No *COPY OF PRESCRIPTION DRUG MONITORING REPORT IN PATIENT OCTAVIO: No Home Medications: Home Meds Diltiazem [Cardizem CD] 240 mg PO DAILY 04/08/14 [History] Metoprolol Tartrate [Lopressor] 100 mg PO BID 04/08/14 [History] Multivits-Min/Iron/FA/Lutein [[employer] Women's Tab] 1 tab PO DAILY 04/08 [History] [place]-3/DHA/Epa/Fish Oil [[place]-3 Fish Oil 1,000 MG Sfgl] 1 tab PO DAILY [History] Potassium Chloride 20 mg PO DAILY 04/08/14 [History] Rivaroxaban [Xarelto] 20 mg PO DAILY 04/08/14 [History] Sertraline [Zoloft] 100 mg PO DAILY 04/08/14 [History] Zolpidem [Ambien] 5 mg PO BEDTIME PRN 04/08/14 [History] Furosemide 40 mg PO DAILY 09/07/18 [History] Losartan [Cozaar] 50 mg PO DAILY 09/07/18 [History] Nitroglycerin 1 tab PO TID PRN MDD 3 09/07/18 [History] Carbamide Peroxide [Debrox] 15 ml OT Q12HR 09/29/18 [History] Magnesium Hydroxide [Milk of Magnesia] 30 ml PO DAILY PRN 09/29/18 [History] Ondansetron [Zofran ODT] 4 mg PO Q6H PRN 09/29/18 [History] Polyethylene Glycol 3350 [Miralax] 17 gm PO DAILY PRN 09/29/18 [History] Referrals: Frederic Dillard MD [Physician] - - Discharge Summary/Plan Comment DC Time >30 min.: No - Patient Data Vitals - Most Recent: Last Vital Signs Temp 36.2 C 09/30/18 08:00 Pulse 76 09/30/18 10:32 Resp 18 09/30/18 08:00 BP 95/51 L 09/30/18 10:32 Pulse Ox 94 L 09/30/18 08:00 Weight - Most Recent: 93.576 kg I&O - Last 24 hours: Intake & Output 09/30/18 09/30/18 09/30/18 06:59 14:59 22:59 Intake Total 0 Output Total 0 Balance 0 Lab Results - Last 24 hrs: Laboratory Results - last 24 hr 09/29/18 09/29/18 09/29/18 Range/Units 23:27 23:27 23:27 WBC 15.56 H (4.0-11.0) K/uL RBC 4.17 L (4.30-5.90) M/uL Hgb 11.6 L (12.0-16.0) g/dL Hct 36.6 (36.0-46.0) % MCV 87.8 (80.0-98.0) fL MCH 27.8 (27.0-32.0) pg MCHC 31.7 (31.0-37.0) g/dL RDW Std Deviation 58.8 (28.0-62.0) fl RDW Coeff of [place] 18 H (11.0-15.0) % Plt Count 184 (150-400) K/uL MPV 10.30 (7.40-12.00) fL Neut % (Auto) 86.6 H (48.0-80.0) % Lymph % (Auto) 5.1 L (16.0-40.0) % Jones % (Auto) 7.8 (0.0-15.0) % Eos % (Auto) 0.3 (0.0-7.0) % Baso % (Auto) 0.2 (0.0-1.5) % Neut # (Auto) 13.5 H (1.4-5.7) K/uL Lymph # (Auto) 0.8 (0.6-2.4) K/uL Jones # (Auto) 1.2 H (0.0-0.8) K/uL Eos # (Auto) 0.1 (0.0-0.7) K/uL Baso # (Auto) 0.0 (0.0-0.1) K/uL Add Manual Diff Neutrophils % (Manual) (48.0-80.0) % Lymphocytes % (Manual) (16.0-40.0) % Monocytes % (Manual) (0.0-15.0) % Nucleated RBC % 0.0 /100WBC Absolute Seg Neuts (1.4-5.7) Lymphocytes # (Manual) (0.6-2.4) Monocytes # (Manual) (0.0-0.8) Nucleated RBCs # 0 K/uL Sodium 132 L (136-145) mmol/L Potassium 7.0 H (3.5-5.1) mmol/L Chloride 101 (98-107) mmol/L Carbon Dioxide 19.8 L (21.0-32.0) mmol/L BUN 53 H (7.0-18.0) mg/dL Creatinine 2.4 H (0.6-1.0) mg/dL Est Cr Clr Drug Dosing 13.31 mL/min Estimated GFR (MDRD) 19.1 ml/min Glucose 93 (74-106) mg/dL Calcium 9.1 (8.5-10.1) mg/dL Total Bilirubin 0.4 (0.2-1.0) mg/dL AST 53 H (15-37) IU/L ALT 17 (14-63) IU/L Alkaline Phosphatase 142 H (46-116) U/L Troponin I (0.000-0.056) ng/mL B-Natriuretic Peptide 770 H (<100) PG/ML Total Protein 8.5 H (6.4-8.2) g/dL Albumin 2.0 L (3.4-5.0) g/dL Globulin 6.5 H (2.6-4.0) g/dL Albumin/Globulin Ratio 0.3 L (0.9-1.6) Lipase (73-393) U/L Urine Color Urine Appearance Urine pH (5.0-8.0) Ur Specific [place] (1.001-1.035) Urine Protein (NEGATIVE) mg/dL Urine Glucose (UA) (NEGATIVE) mg/dL Urine Ketones (NEGATIVE) mg/dL Urine Occult Blood (NEGATIVE) Urine Nitrite (NEGATIVE) Urine Bilirubin (NEGATIVE) Urine Ictotest Urine Urobilinogen (<2.0) EU/dL Ur Leukocyte Esterase (NEGATIVE) Urine RBC (0-2/HPF) Urine WBC (0-5/HPF) Ur Epithelial Cells (NONE-FEW) Calcium Oxalate Crystal (NEGATIVE) Amorphous Sediment (NEGATIVE) Urine Bacteria (NEGATIVE) Urine Mucus (NONE-MOD) 09/29/18 09/30/18 09/30/18 Range/Units 23:27 00:25 01:28 WBC (4.0-11.0) K/uL RBC (4.30-5.90) M/uL Hgb (12.0-16.0) g/dL Hct (36.0-46.0) % MCV (80.0-98.0) fL MCH (27.0-32.0) pg MCHC (31.0-37.0) g/dL RDW Std Deviation (28.0-62.0) fl RDW Coeff of [place] (11.0-15.0) % Plt Count (150-400) K/uL MPV (7.40-12.00) fL Neut % (Auto) (48.0-80.0) % Lymph % (Auto) (16.0-40.0) % Jones % (Auto) (0.0-15.0) % Eos % (Auto) (0.0-7.0) % Baso % (Auto) (0.0-1.5) % Neut # (Auto) (1.4-5.7) K/uL Lymph # (Auto) (0.6-2.4) K/uL Jones # (Auto) (0.0-0.8) K/uL Eos # (Auto) (0.0-0.7) K/uL Baso # (Auto) (0.0-0.1) K/uL Add Manual Diff Neutrophils % (Manual) (48.0-80.0) % Lymphocytes % (Manual) (16.0-40.0) % Monocytes % (Manual) (0.0-15.0) % Nucleated RBC % /100WBC Absolute Seg Neuts (1.4-5.7) Lymphocytes # (Manual) (0.6-2.4) Monocytes # (Manual) (0.0-0.8) Nucleated RBCs # K/uL Sodium (136-145) mmol/L Potassium 6.7 H (3.5-5.1) mmol/L Chloride (98-107) mmol/L Carbon Dioxide (21.0-32.0) mmol/L BUN (7.0-18.0) mg/dL Creatinine (0.6-1.0) mg/dL Est Cr Clr Drug Dosing mL/min Estimated GFR (MDRD) ml/min Glucose (74-106) mg/dL Calcium (8.5-10.1) mg/dL Total Bilirubin (0.2-1.0) mg/dL AST (15-37) IU/L ALT (14-63) IU/L Alkaline Phosphatase (46-116) U/L Troponin I < 0.050 (0.000-0.056) ng/mL B-Natriuretic Peptide (<100) PG/ML Total Protein (6.4-8.2) g/dL Albumin (3.4-5.0) g/dL Globulin (2.6-4.0) g/dL Albumin/Globulin Ratio (0.9-1.6) Lipase 89 (73-393) U/L Urine Color YELLOW Urine Appearance CLOUDY Urine pH 5.0 (5.0-8.0) Ur Specific [place] >= 1.030 (1.001-1.035) Urine Protein TRACE H (NEGATIVE) mg/dL Urine Glucose (UA) NEGATIVE (NEGATIVE) mg/dL Urine Ketones TRACE H (NEGATIVE) mg/dL Urine Occult Blood NEGATIVE (NEGATIVE) Urine Nitrite NEGATIVE (NEGATIVE) Urine Bilirubin SMALL H (NEGATIVE) Urine Ictotest POSITIVE Urine Urobilinogen 0.2 (<2.0) EU/dL Ur Leukocyte Esterase NEGATIVE (NEGATIVE) Urine RBC 0-2 (0-2/HPF) Urine WBC 0-3 (0-5/HPF) Ur Epithelial Cells OCCASIONAL (NONE-FEW) Calcium Oxalate Crystal RARE (NEGATIVE) Amorphous Sediment LIGHT (NEGATIVE) Urine Bacteria 1+ H (NEGATIVE) Urine Mucus LIGHT (NONE-MOD) 09/30/18 09/30/18 Range/Units 06:14 06:14 WBC 18.36 H (4.0-11.0) K/uL RBC 3.69 L (4.30-5.90) M/uL Hgb 10.1 L (12.0-16.0) g/dL Hct 32.5 L (36.0-46.0) % MCV 88.1 (80.0-98.0) fL MCH 27.4 (27.0-32.0) pg MCHC 31.1 (31.0-37.0) g/dL RDW Std Deviation 59.2 (28.0-62.0) fl RDW Coeff of [place] 18 H (11.0-15.0) % Plt Count 152 (150-400) K/uL MPV 9.50 (7.40-12.00) fL Neut % (Auto) (48.0-80.0) % Lymph % (Auto) (16.0-40.0) % Jones % (Auto) (0.0-15.0) % Eos % (Auto) (0.0-7.0) % Baso % (Auto) (0.0-1.5) % Neut # (Auto) (1.4-5.7) K/uL Lymph # (Auto) (0.6-2.4) K/uL Jones # (Auto) (0.0-0.8) K/uL Eos # (Auto) (0.0-0.7) K/uL Baso # (Auto) (0.0-0.1) K/uL Add Manual Diff YES Neutrophils % (Manual) 74 (48.0-80.0) % Lymphocytes % (Manual) 20 (16.0-40.0) % Monocytes % (Manual) 6 (0.0-15.0) % Nucleated RBC % 0.0 /100WBC Absolute Seg Neuts 13.6 H (1.4-5.7) Lymphocytes # (Manual) 3.7 H (0.6-2.4) Monocytes # (Manual) 1.1 H (0.0-0.8) Nucleated RBCs # 0 K/uL Sodium 136 (136-145) mmol/L Potassium 5.9 H (3.5-5.1) mmol/L Chloride 104 (98-107) mmol/L Carbon Dioxide 24.2 (21.0-32.0) mmol/L BUN 55 H (7.0-18.0) mg/dL Creatinine 2.9 H (0.6-1.0) mg/dL Est Cr Clr Drug Dosing 11.01 mL/min Estimated GFR (MDRD) 15.4 ml/min Glucose 50 L (74-106) mg/dL Calcium 9.3 (8.5-10.1) mg/dL Total Bilirubin (0.2-1.0) mg/dL AST (15-37) IU/L ALT (14-63) IU/L Alkaline Phosphatase (46-116) U/L Troponin I (0.000-0.056) ng/mL B-Natriuretic Peptide (<100) PG/ML Total Protein (6.4-8.2) g/dL Albumin (3.4-5.0) g/dL Globulin (2.6-4.0) g/dL Albumin/Globulin Ratio (0.9-1.6) Lipase (73-393) U/L Urine Color Urine Appearance Urine pH (5.0-8.0) Ur Specific [place] (1.001-1.035) Urine Protein (NEGATIVE) mg/dL Urine Glucose (UA) (NEGATIVE) mg/dL Urine Ketones (NEGATIVE) mg/dL Urine Occult Blood (NEGATIVE) Urine Nitrite (NEGATIVE) Urine Bilirubin (NEGATIVE) Urine Ictotest Urine Urobilinogen (<2.0) EU/dL Ur Leukocyte Esterase (NEGATIVE) Urine RBC (0-2/HPF) Urine WBC (0-5/HPF) Ur Epithelial Cells (NONE-FEW) Calcium Oxalate Crystal (NEGATIVE) Amorphous Sediment (NEGATIVE) Urine Bacteria (NEGATIVE) Urine Mucus (NONE-MOD) Med Orders - Current: Current Medications Acetaminophen (Tylenol) 650 mg RECTAL Q4H PRN PRN Reason: Pain Hyoscyamine (Hyomax-Sl) 0.125 mg SL Q4H PRN PRN Reason: Congestion Last Admin: 09/30/18 15:38 Dose: 0.125 mg Lorazepam (Ativan) 0.5 mg IVPUSH Q4H PRN PRN Reason: agitation/anxiety Last Admin: 09/30/18 12:03 Dose: 0.5 mg Morphine Sulfate (Morphine) 3 mg IVPUSH Q1H PRN PRN Reason: Pain/SOB/agitation Last Admin: 09/30/18 14:09 Dose: 3 mg Scopolamine (Transderm-Scop) 1.5 mg TRDERM Q72H PRN PRN Reason: Congestion Last Admin: 09/30/18 11:18 Dose: 1.5 mg Sodium Chloride (Saline Flush) 10 ml FLUSH ASDIRECTED PRN PRN Reason: Keep Vein Open Sodium Chloride (Saline Flush) 2.5 ml FLUSH ASDIRECTED PRN PRN Reason: Keep Vein Open Discontinued Medications Acetaminophen (Tylenol) 650 mg PO Q6H PRN PRN Reason: Pain (mild 1-3) Calcium Chloride (Calcium Chloride 10%) 1 gm IV ONETIME ONE Stop: 09/30/18 00:08 Last Admin: 09/30/18 01:00 Dose: 1 gm Calcium Chloride (Calcium Chloride 10%) 1 gm IV .STK-MED ONE Stop: 09/30/18 13:18 Dextrose/Water (Dextrose 50% In Water) 50 ml IVPUSH ONETIME ONE Stop: 09/30/18 00:08 Last Admin: 09/30/18 01:12 Dose: 50 ml Dextrose/Water (Dextrose 50% In Water) 50 ml IVPUSH ONETIME ONE Stop: 09/30/18 03:36 Last Admin: 09/30/18 04:07 Dose: 50 ml Diltiazem HCl (Cardizem Cd) 240 mg PO DAILY [facility] Last Admin: 09/30/18 10:31 Dose: Not Given Furosemide (Lasix) 20 mg IVPUSH BIDDIURETIC [facility] Furosemide (Lasix) 40 mg PO DAILY [facility] Last Admin: 09/30/18 10:32 Dose: Not Given Furosemide (Lasix) 20 mg IVPUSH NOW ONE Stop: 09/30/18 09:44 Last Admin: 09/30/18 09:48 Dose: 20 mg Sodium Chloride (Normal Saline) 250 mls @ 999 mls/hr IV .BOLUS ONE Stop: 09/30/18 01:39 Last Admin: 09/30/18 01:27 Dose: 999 mls/hr Insulin Human Regular (Novolin R) 10 unit IVPUSH ONETIME ONE Stop: 09/30/18 00:08 Last Admin: 09/30/18 01:14 Dose: 10 units Insulin Human Regular (Novolin R) 10 unit IVPUSH ONETIME ONE; Protocol Stop: 09/30/18 03:36 Last Admin: 09/30/18 04:07 Dose: 10 units Losartan Potassium (Cozaar) 50 mg PO DAILY [facility] Last Admin: 09/30/18 10:31 Dose: Not Given Metoprolol Tartrate (Lopressor) 100 mg PO BID [facility] Last Admin: 09/30/18 10:32 Dose: Not Given Morphine Sulfate (Morphine) 1 mg IVPUSH NOW STA Stop: 09/30/18 09:42 Last Admin: 09/30/18 09:47 Dose: 1 mg Morphine Sulfate (Morphine) 1 mg IVPUSH Q2H PRN PRN Reason: Pain (severe 7-10) Last Admin: 09/30/18 11:04 Dose: 1 mg Morphine Sulfate (Morphine) 4 mg IVPUSH STAT ONE Stop: 09/30/18 11:56 Last Admin: 09/30/18 11:59 Dose: 4 mg Ondansetron HCl (Zofran) 4 mg IVPUSH ONETIME ONE Stop: 09/29/18 23:08 Last Admin: 09/30/18 00:15 Dose: 4 mg Oxycodone HCl (Oxycodone) 5 mg PO Q4H PRN PRN Reason: Pain (moderate 4-6) Rivaroxaban (Xarelto) [facility] Sertraline HCl (Zoloft) 100 mg PO DAILY [facility] Last Admin: 09/30/18 10:32 Dose: Not Given Sodium Bicarbonate (Sodium Bicarbonate 8.4%) 50 meq IVPUSH ONETIME ONE Stop: 09/30/18 00:08 Last Admin: 09/30/18 01:08 Dose: 50 meq Sodium Bicarbonate (Sodium Bicarbonate 8.4%) Confirm Administered Dose 50 meq .ROUTE .STK-MED ONE Stop: 09/30/18 00:55 Last Admin: 09/30/18 01:00 Dose: Not Given Sodium Polystyrene Sulfonate (Kayexalate) 30 gm PO ONETIME ONE Stop: 09/30/18 02:06 Last Admin: 09/30/18 04:06 Dose: Not Given *Q Meaningful Use (DIS) - VTE *Q VTE Mechanical Contraindications *Q: At Risk for Falls VTE Pharmacological Contraindications *Q: Risk of Bleeding
== END 2018-09-30 17:20 | disposition expired | DRG 292 ==
LOC: MW.ED 22:33 → MW.MS 09-30 00:22
PROVIDERS: ADMIT Internal Medicine; ATTEND Internal Medicine
DX: I13.0 Hypertensive heart and chronic kidney disease with heart failure and stage 1 through stage 4 chronic kidney disease, or unspecified chronic kidney disease (principal); I50.42 Chronic combined systolic (congestive) and diastolic (congestive) heart failure; I25.10 Atherosclerotic heart disease of native coronary artery without angina pectoris; H91.90 Unspecified hearing loss, unspecified ear; Z51.5 Encounter for palliative care; I48.2 Chronic atrial fibrillation; I95.9 Hypotension, unspecified; N18.9 Chronic kidney disease, unspecified; I50.9 Heart failure, unspecified; E87.5 Hyperkalemia; J44.9 Chronic obstructive pulmonary disease, unspecified; M25.562 Pain in left knee; M25.561 Pain in right knee; W19.XXXA Unspecified fall, initial encounter; R51 Headache; R10.10 Upper abdominal pain, unspecified; I27.20 Pulmonary hypertension, unspecified; Z95.0 Presence of cardiac pacemaker; I48.91 Unspecified atrial fibrillation; Z68.30 Body mass index [BMI] 30.0-30.9, adult; E78.00 Pure hypercholesterolemia, unspecified; I08.2 Rheumatic disorders of both aortic and tricuspid valves; Z85.038 Personal history of other malignant neoplasm of large intestine; F32.9 Major depressive disorder, single episode, unspecified; Z91.81 History of falling; G89.29 Other chronic pain; Z99.81 Dependence on supplemental oxygen; M54.9 Dorsalgia, unspecified; E66.9 Obesity, unspecified; Z88.8 Allergy status to other drugs, medicaments and biological substances; Z79.01 Long term (current) use of anticoagulants; Z79.899 Other long term (current) drug therapy; Z87.891 Personal history of nicotine dependence
CPT/HCPCS: 36415 ×2; 70450; 71045; 73562 ×2; 74176; 80053; 83690; 83880; 84484; 85025; 96374; 99285; J2405; 51702; 80048; 81001; 84132; 93005; 96375; A9270-GY; J1815-GY; J1940; J2060; J2270; J7040; J7060